=== PATIENT | female | born 1940 | race Hispanic/Latino ===

== ENCOUNTER 2017-12-07 14:14 | Emergency (ER) | payer OTHER ==
--- OUTSIDE RECORDS SUMMARY | 2017-12-07 14:18 | XMS REPORT ---
:1940 Author Organization [employer] Care Team Providers Name Role Phone Richard, Na Provider Role Unavailable Allergies, Adverse Reactions, Alerts Substance Reaction Event Type N.K.D.A. Info Not Available Non Drug Allergy Problems Problem Type Condition Code Onset Dates Condition Status Problem Hyperlipidemia, unspecified E78.5 Active hyperlipidemia type Problem Pleural effusion in other conditions J91.8 Active classified elsewhere Problem Gastroesophageal reflux disease K21.9 Active without esophagitis Problem Mass of right lung R91.8 Active Assessment Abnormal PET scan of colon R94.8 Active Problem Abnormal PET scan of colon R94.8 Active Assessment Mass of right lung R91.8 Active Assessment Liver lesion, right lobe K76.9 Active Problem Elevated alkaline phosphatase level R74.8 Active Problem Mixed hyperlipidemia E78.2 Active Problem Solitary pulmonary nodule R91.1 Active Problem Liver lesion, right lobe K76.9 Active Problem Pleural effusion J90 Active Assessment Gastroesophageal reflux disease K21.9 Active without esophagitis Assessment Mixed hyperlipidemia E78.2 Active Assessment Pleural effusion in other conditions J91.8 Active classified elsewhere Assessment Seasonal allergic rhinitis due to J30.1 Active pollen Problem Obesity (BMI 30.0-34.9) E66.9 Active Problem Vitamin D deficiency E55.9 Active Assessment Hypertension, unspecified type I10 Active Problem Hypertension, unspecified type I10 Active Assessment Elevated alkaline phosphatase level R74.8 Active Problem Seasonal allergic rhinitis due to J30.1 Active pollen Medications Medication Code Code Instructions Start End Status Dosage System Date Date Omeprazole ND 56797697087 20MG orally once Active one daily tablet Zyrtec Allergy ND 43924913856 10 MG Orally Active 1 tablet Once a day Atorvastatin ND 24297535526 20 MG Orally Active 1 tablet Calcium Once a day Lisinopril ND 17796782809 20 MG Orally Active 1 tablet Once a day Vitamin D3 ND 35861524007 50,000 PO once a Active one tab week Results No Known Results Summary Purpose [employer] Submission
--- OUTSIDE RECORDS SUMMARY | 2017-12-07 14:18 | XMS REPORT | Clinical Summary ---
:1940 Author Organization [facility] Address [address] [place] [address] Care Team Providers Name Role Phone Billie Richard DO Primary Care Provider Allergies No Known Allergies Current Medications Prescription Sig. Disp. Refills Start Date End Date Status atorvastatin Take 20 mg by Active (LIPITOR) 20 MG mouth daily. tablet Default OP ins lisinopril Take 20 mg by Active (PRINIVIL,ZESTRIL) 20 mouth daily. mg tablet omeprazole (PriLOSEC) Take 20 mg by Active 20 MG capsule mouth daily. aspirin (ECOTRIN) 81 Take 81 mg by Active MG enteric coated mouth daily. tablet cholecalciferol, Take by mouth. Active vitamin D3, (VITAMIN D3) 5,000 unit tablet acetaminophen Take 2 tablets 30 tablet 0 09/23/2017 09/28/2017 (TYLENOL) 500 MG (1,000 mg tablet total) by mouth every 8 (eight) hours for 5 days. gabapentin Take 1 capsule 90 capsule 0 09/23/2017 10/23/2017 (NEURONTIN) 300 mg (300 mg total) capsule by mouth 3 (three) times a day for 30 days. ibuprofen Take 1 tablet 12 tablet 0 09/23/2017 09/26/2017 (ADVIL,MOTRIN) 400 MG (400 mg total) tablet by mouth every 6 (six) hours for 3 days. Active Problems Problem Noted Date Lung nodule 09/22/2017 Encounters Date Type Specialty Care Team Description 11/24/2017 Telephone Cardiothoracic Surgery Kim Swain MA 10/27/2017 Telephone Cardiothoracic Surgery Kim Swain MA 10/19/2017 Telephone Cardiothoracic Surgery Ellen Phan MA 10/18/2017 Orders Only Cardiothoracic Surgery Ellen Phan, LEONARDO 09/30/2017 Telephone Cardiothoracic Surgery Milan Fuentes MD 09/22/2017 - Hospital Encounter Cardiology Milan Fuentes Lung nodule ( Primary Dx); 09/23/2017 MD Deyanira Lung mass 09/22/2017 Anesthesia Event Cardiothoracic Surgery Carlos Hicsk, LENIN 09/22/2017 Procedure Pass Cardiothoracic Surgery 09/22/2017 Surgery Cardiothoracic Surgery Milan Fuentes RIGHT VATS, PARTIAL MD Deyanira DECORTICATION, AND RIGHT PLEURAL BX 09/20/2017 Telephone Cardiothoracic Surgery Ellen Phan MA 09/03/2017 Hospital Encounter Procedural Cardiology Octavio Guerra MD Abnormal EKG 09/03/2017 Hospital Encounter Procedural Cardiology Octavio Guerra MD Abnormal EKG 09/03/2017 Ancillary Orders Access Octavio Guerra MD Abnormal EKG 08/31/2017 Transcribe Orders Access Octavio Guerra MD Abnormal EKG (Primary Dx) 08/26/2017 Hospital Encounter Radiology Milan Fuentes Canceled (Sotero Mcmillan MD Order Error) 08/26/2017 Hospital Encounter Radiology Milan Fuentes MD 08/26/2017 Office Visit Cardiothoracic Surgery Milan Fuentes Lung mass ( Primary Dx); MD Deyanira Pre-op testing 08/26/2017 Ancillary Orders Radiology Milan Fuentes MD 08/23/2017 Orders Only Cardiothoracic Surgery Yuni Villa MD 08/18/2017 Orders Only Cardiothoracic Surgery Yuni Villa MD 08/18/2017 Telephone Cardiothoracic Surgery Ellen Phan MA 07/21/2017 Telephone Cardiothoracic Surgery Ellen Phan MA 07/15/2017 Hospital Encounter Radiology Milan Fuentes MD 07/15/2017 Hospital Encounter Radiology Milan Fuentes MD 07/15/2017 Office Visit Cardiothoracic Surgery Milan Fuentes Pleural effusion MD Deyanira (Primary Dx) 07/15/2017 Ancillary Orders Radiology Milan Fuentes MD 07/15/2017 Orders Only Cardiothoracic Surgery Yuni Villa MD 07/12/2017 Orders Only Cardiothoracic Surgery Yuni Villa MD after 12/06/2016 Family History Medical History Relation Name Comments No Known Problems Father No Known Problems Mother Breast cancer Paternal Aunt Relation Name Status Comments Father Mother Paternal Aunt Social History Tobacco Use Types Packs/Day Years Used Date Former Smoker Cigarettes 1 20 Quit: 2007 Smokeless Tobacco: Never Used Alcohol Use Drinks/Week oz/Week Comments No Sex Assigned at Date Recorded Not on file Last Filed Vital Signs Vital Sign Reading Time Taken Blood Pressure 111/52 09/23/2017 11:32 AM CDT Pulse 76 09/23/2017 11:32 AM CDT Temperature 36.7 C (98.1 F) 09/23/2017 11:32 AM CDT Respiratory Rate 20 09/23/2017 11:32 AM CDT Oxygen Saturation 91% 09/23/2017 11:32 AM CDT Inhaled Oxygen Concentration - - Weight 79.8 kg (176 lb) 09/23/2017 6:08 AM CDT Height 154.9 cm (5' 1") 09/22/2017 5:36 PM CDT Body Mass Index 33.25 09/23/2017 6:08 AM CDT Plan of Treatment Health Maintenance Due Date Last Done Comments SHINGRIX VACCINE (#1) 1991 ZOSTER VACCINE 2001 PNEUMOCOCCAL POLYSACCHARIDE VACCINE AGE 65 AND OVER 2006 PNEUMOCOCCAL-13 2006 INFLUENZA VACCINE 09/29/2017 Procedures Procedure Name Priority Date/Time Associated Comments Diagnosis XR CHEST 1 VW STAT 09/23/2017 2:24 PM Results for this PORTABLE CDT procedure are in the results section. XR CHEST 1 VW Routine 09/23/2017 12:23 PM Results for this PORTABLE CDT procedure are in the results section. XR CHEST 1 VW Routine 09/23/2017 6:55 AM Results for this PORTABLE CDT procedure are in the results section. XR CHEST 1 VW STAT 09/22/2017 2:58 PM Results for this PORTABLE CDT procedure are in the results section. GLUCOSE LEVEL, STAT 09/22/2017 12:59 PM Results for this SYRINGE CDT procedure are in the results section. IONIZED CALCIUM, STAT 09/22/2017 12:59 PM Results for this ARTERIAL CDT procedure are in the results section. HEMOGLOBIN, SYRINGE STAT 09/22/2017 12:59 PM Results for this CDT procedure are in the results section. POTASSIUM, SYRINGE STAT 09/22/2017 12:59 PM Results for this CDT procedure are in the results section. SODIUM LEVEL, STAT 09/22/2017 12:59 PM Results for this SYRINGE CDT procedure are in the results section. ARTERIAL BLOOD GAS, STAT 09/22/2017 12:59 PM Results for this CORRECTED CDT procedure are in the results section. ANESTHESIA Routine 09/22/2017 12:39 PM INTUBATION CDT Procedure Note - Carlos Hicks, PURIFICATION SUPERVISOR - 09/22/2017 12:39 PM CDT Airway Date/Time: 09/22/2017 11:58 AM Performed by: CARLOS HICKS Authorized by: JUVENTINO ZUNIGA Location: OR Difficult Airway: No Anesthesiologist: JUVENTINO ZUNIGA Resident/PURIFICATION SUPERVISOR/AA: CARLOS HICKS Performed by: resident/PURIFICATION SUPERVISOR/AA Preoxygenated with 100% O2: Yes Mask Ventilation: Not attempted Final Airway Type: Endotracheal airway Final Endotracheal Airway: ETT - double lumen left Cuffed: Yes Technique Used: Direct laryngoscopy Blade Type: Alcira Laryngoscope Blade/Videolaryngoscope Blade Size: 3 ETT Double Lumen (fr): 37 Cuff at minimum occlusion pressure: Yes Measured from: Lips ETT to Lips (cm): 26 Placement Verified by: CO2 detection, direct visualization, equal breath sounds and fiber optic visualization Laryngoscopic view: Grade I - full view of glottis Number of Attempts at Approach: 1 Atraumatic tube exchange without damage to lips or gums. Dentition remains intact as per preoperative assessment. BLBS and EtCO2 confirmed. Fiberoptic bronchoscope used to confirm appropriate placement. Both cuffs at minimal occlusive pressure. GLUCOSE LEVEL, SYRINGE STAT 09/22/2017 12:26 PM CDT POTASSIUM, SYRINGE STAT 09/22/2017 12:26 PM CDT IONIZED CALCIUM, ARTERIAL STAT 09/22/2017 12:26 PM CDT HEMOGLOBIN, SYRINGE STAT 09/22/2017 12:26 PM CDT SODIUM LEVEL, SYRINGE STAT 09/22/2017 12:26 PM CDT ARTERIAL BLOOD GAS STAT 09/22/2017 12:26 PM CDT CYTOLOGY Routine 09/22/2017 12:25 PM CDT Results for this procedure (NON-GYNECOLOGICAL) are in the results REQUEST section. ARTERIAL LINE Routine 09/22/2017 11:42 AM CDT Procedure Note - Carlos Hicks CRNA - 09/22/2017 11:42 AM CDT Arterial line Performed by: CARLOS HICKS Authorized by: JUVENTINO ZUNIGA Patient Location: Pre-op Staff: Anesthesiologist: JUVENTINO ZUNIGA Resident/PURIFICATION SUPERVISOR/AA: CARLOS HICKS Performed by: Resident/PURIFICATION SUPERVISOR/AA Pre-procedure: patient identified, IV checked, site and side verified, risks and benefits discussed, procedure verified, surgical consent complete, patient position confirmed, monitors and equipment checked and pre-op evaluation complete MSBT: antiseptic used, all elements of maximal sterile barrier technique followed, hand hygiene performed, cap/gown used by other personnel and solutions labeled Indications: Indications: multiple ABGs and hemodynamic monitoring Anesthesia: Anesthesia: Local infiltration Procedure Details: Arterial Line placement: Placed pre-induction Line placement site: Radial Line placement side: Left Arterial line gauge: 20 G Number of attempts: 1 Ultrasound guidance used: No Post-procedure: Post-procedure: Sterile dressing applied Post procedure circulation, sensation, movement: Normal and unchanged Patient tolerance: Patient tolerated the procedure well with no immediate complications MN AN ELECTIVE ENDOTRACHEAL AIRWAY Routine 09/22/2017 11:41 AM CDT Procedure Note - Carlos Hicks CRNA - 09/22/2017 11:41 AM CDT Airway Date/Time: 09/22/2017 11:27 AM Performed by: CARLOS HICKS Authorized by: JUVENTINO ZUNIGA Location: OR Urgency: Elective Difficult Airway: No Anesthesiologist: JUVENTINO ZUNIGA Resident/PURIFICATION SUPERVISOR/AA: CARLOS HICKS Performed by: resident/PURIFICATION SUPERVISOR/AA Preoxygenated with 100% O2: Yes Mask Ventilation: Easy mask Final Airway Type: Endotracheal airway Final Endotracheal Airway: ETT Cuffed: Yes Technique Used: Direct laryngoscopy Devices/Methods Used in Placement: Intubating stylet Insertion Site: Oral Blade Type: Cowart Laryngoscope Blade/Videolaryngoscope Blade Size: 2 ETT Size (mm): 8.5 Cuff at minimum occlusion pressure: Yes Measured from: Lips ETT to Lips (cm): 21 Placement Verified by: CO2 detection, direct visualization and equal breath sounds Laryngoscopic view: Grade I - full view of glottis Rapid Sequence Induction (RSI): No Number of Attempts at Approach: 1 Atraumatic intubation without damage to lips or gums. Dentition remains intact as per preoperative assessment. BLBS and EtCO2 confirmed. Cuff inflated to minimal occlusive pressure. Eyes taped prior to DL. GLUCOSE LEVEL, SYRINGE STAT 09/22/2017 10:40 AM Results for this CDT procedure are in the results section. HEMOGLOBIN, SYRINGE STAT 09/22/2017 10:40 AM Results for this CDT procedure are in the results section. IONIZED CALCIUM, ARTERIAL STAT 09/22/2017 10:40 AM Results for this CDT procedure are in the results section. SODIUM LEVEL, SYRINGE STAT 09/22/2017 10:40 AM Results for this CDT procedure are in the results section. POTASSIUM, SYRINGE STAT 09/22/2017 10:40 AM Results for this CDT procedure are in the results section. ARTERIAL BLOOD GAS STAT 09/22/2017 10:40 AM Results for this CDT procedure are in the results section. PREPARE RBC STAT 09/22/2017 9:11 AM Results for this CDT procedure are in the results section. ZZESTIMATED GFR STAT 09/22/2017 9:11 AM Results for this CDT procedure are in the results section. TYPE AND SCREEN STAT 09/22/2017 9:11 AM Results for this CDT procedure are in the results section. PARTIAL THROMBOPLASTIN STAT 09/22/2017 9:11 AM Results for this TIME (PTT) CDT procedure are in the results section. PROTHROMBIN TIME WITH INR STAT 09/22/2017 9:11 AM Results for this CDT procedure are in the results section. BASIC METABOLIC PANEL STAT 09/22/2017 9:11 AM Results for this CDT procedure are in the results section. HC COMPLETE BLD COUNT STAT 09/22/2017 9:11 AM Results for this W/AUTO DIFF CDT procedure are in the results section. CYTOLOGY Routine 09/22/2017 9:10 AM Results for this (NON-GYNECOLOGICAL) CDT procedure are in REQUEST the results section. SURGICAL PATHOLOGY Routine 09/22/2017 8:54 AM Results for this REQUEST CDT procedure are in the results section. SURGICAL PATHOLOGY Routine 09/22/2017 8:54 AM Results for this REQUEST CDT procedure are in the results section. SURGICAL PATHOLOGY Routine 09/22/2017 8:54 AM Results for this REQUEST CDT procedure are in the results section. NM MYOCARDIAL PERFUSION Routine 09/03/2017 11:05 AM Abnormal EKG Results for this STRESS ONLY CDT procedure are in the results section. CV STRESS TEST NUCLEAR Routine 09/03/2017 11:05 AM Abnormal EKG Results for this CARDIO CDT procedure are in the results section. ECHOCARDIOGRAM 2D Routine 09/03/2017 9:35 AM Abnormal EKG Results for this COMPLETE W MMODE SPECTRAL CDT procedure are in COLOR DOPPLER (40199) the results section. CT CHEST W CONTRAST Routine 08/17/2017 12:[address] CHEST EXTERNAL STUDY Routine 08/12/2017 9:27 AM Results for this CDT procedure are in the results section. PET CT SKULL BASE MID Routine 08/12/2017 12:00 AM THIGH EXTERNAL STUDY CDT XR CHEST EXTERNAL STUDY Routine 07/02/2017 11:31 AM Results for this CDT procedure are in the results section. XR CHEST 2 VW Routine 07/02/2017 12:[address] CHEST EXTERNAL STUDY Routine 02/11/2017 9:14 AM Results for this PROPERTY UNDERWRITER procedure are in the results section. CT CHEST WO CONTRAST Routine 02/11/2017 12:00 AM PROPERTY UNDERWRITER after 12/06/2016 Results XR Chest 1 Vw Portable (09/23/2017 2:24 PM)Only the most recent of4 resultswithin the time period is included. Narrative Performed At EXAMINATION:XR CHEST 1 VW PORTABLE RADIANT CLINICAL HISTORY:chest tube removed COMPARISON:To previous study from 1025 hours IMPRESSION: Right pleural tube is been removed and a loculated small right pneumothorax is unchanged. Consolidation and atelectasis in the right lower chest are present. The left lung is clear. The heart is not enlarged. [id number] Procedure Note Hm Interface, Radiology Results Incoming - 09/23/2017 2:28 PM CDT EXAMINATION: XR CHEST 1 VW PORTABLE CLINICAL HISTORY: chest tube removed COMPARISON: To previous study from 1025 hours IMPRESSION: Right pleural tube is been removed and a loculated small right pneumothorax is unchanged. Consolidation and atelectasis in the right lower chest are present. The left lung is clear. The heart is not enlarged. [id number] Performing Organization Address City/State/[place] [address] Sodium level, syringe (09/22/2017 12:59 PM)Only the most recent of3 resultswithin the time period is included. Sodium, syringe 138 135 - 148 mEq/L [facility] DEPARTMENT OF PATHOLOGY AND GENOMIC MEDICINE Specimen Blood Performing Organization Address [facility] Phone Number [facility] DEPARTMENT OF PATHOLOGY AND [address] [place] [address] Potassium, syringe (09/22/2017 12:59 PM)Only the most recent of3 resultswithin the time period is included. Potassium, syringe 3.7 3.5 - 5.0 mEq/L [facility] DEPARTMENT OF PATHOLOGY AND GENOMIC MEDICINE Specimen Blood Performing Organization Address [facility] Phone Number [facility] DEPARTMENT OF PATHOLOGY AND [address] [place] [address] Ionized calcium, arterial (09/22/2017 12:59 PM)Only the most recent of3 resultswithin the time period is included. Ionized calcium, arterial 1.14 1.11 - 1.32 mmol/L [facility] DEPARTMENT OF PATHOLOGY AND GENOMIC MEDICINE Specimen Blood Performing Organization Address [facility] Phone Number [facility] DEPARTMENT PATHOLOGY AND [address] [place] [address] Hemoglobin, syringe (09/22/2017 12:59 PM)Only the most recent of3 resultswithin the time period is included. Hemoglobin, syringe 9.6 (L) 12.0 - 16.0 g/dL [facility] DEPARTMENT OF PATHOLOGY AND GENOMIC MEDICINE Specimen Blood Performing Organization Address [facility] Phone Number [facility] DEPARTMENT OF PATHOLOGY AND [address] [place] [address] Glucose level, syringe (09/22/2017 12:59 PM)Only the most recent of3 resultswithin the time period is included. Glucose, syringe 101 (H) 65 - 99 mg/dL [facility] DEPARTMENT OF PATHOLOGY AND GENOMIC MEDICINE Specimen Blood Performing Organization Address [facility] Phone Number [facility] DEPARTMENT PATHOLOGY AND [address] [place] [address] Arterial blood gas, corrected (09/22/2017 12:59 PM) pH, arterial 7.48 (H) 7.35 - 7.45 [facility] DEPARTMENT OF PATHOLOGY AND GENOMIC MEDICINE pCO2, arterial 34 (L) 35 - 45 mmHg [facility] DEPARTMENT OF PATHOLOGY AND GENOMIC MEDICINE pO2, arterial 432 (H) 80 - 90 mmHg [facility] DEPARTMENT OF PATHOLOGY AND GENOMIC MEDICINE Temperature, Celsius 36.3 Degrees C [facility] DEPARTMENT OF PATHOLOGY AND GENOMIC MEDICINE O2 saturation, arterial 100 95 - 100 % [facility] DEPARTMENT OF PATHOLOGY AND GENOMIC MEDICINE pH, arterial corrected 7.50 [facility] DEPARTMENT OF PATHOLOGY AND GENOMIC MEDICINE pCO2, arterial corrected 33 mmHg [facility] DEPARTMENT OF PATHOLOGY AND GENOMIC MEDICINE pO2, arterial corrected 429 mmHg [facility] DEPARTMENT OF PATHOLOGY AND GENOMIC MEDICINE Base excess, arterial 3 (H) -2 - 2 mEq/L [facility] DEPARTMENT OF PATHOLOGY AND GENOMIC MEDICINE Specimen Blood Performing Organization Address City/[facility] Phone Number [facility] DEPARTMENT OF PATHOLOGY AND [address] [place] [phone] [facility] MEDICINE Arterial blood gas (09/22/2017 12:26 PM)Only the most recent of2 resultswithin the time period is included. pH, arterial 7.47 (H) 7.35 - 7.45 [facility] DEPARTMENT OF PATHOLOGY AND GENOMIC MEDICINE pCO2, arterial 37 35 - 45 mmHg [facility] DEPARTMENT OF PATHOLOGY AND GENOMIC MEDICINE pO2, arterial 473 (H) 80 - 90 mmHg [facility] DEPARTMENT OF PATHOLOGY AND GENOMIC MEDICINE Bicarbonate, arterial 26.7 21.0 - 28.0 mmol/L [facility] DEPARTMENT OF PATHOLOGY AND GENOMIC MEDICINE Base excess, arterial 3 (H) -2 - 2 mEq/L [facility] DEPARTMENT OF PATHOLOGY AND GENOMIC MEDICINE O2 saturation, arterial 100 95 - 100 % [facility] DEPARTMENT OF PATHOLOGY AND GENOMIC MEDICINE Specimen Blood Performing Organization Address City/[facility] Phone Number [facility] DEPARTMENT OF PATHOLOGY AND [address] [place] [phone] GENOMIC MEDICINE Cytology (non-gynecological) request (09/22/2017 12:25 PM)Only the most recent of2 resultswithin the time period is included. [facility] DEPARTMENT OF PATHOLOGY AND GENOMIC MEDICINE Cytology See link below for PDF [facility] DEPARTMENT OF (non-gynecological) report Lab Report PATHOLOGY AND GENOMIC MEDICINE Result status This is Final Report to [facility] DEPARTMENT OF [id number] PATHOLOGY AND GENOMIC MEDICINE Performing Organization Address City/[facility] Phone Number [facility] DEPARTMENT OF PATHOLOGY AND [address] [place] [phone] [place] [address] Estimated GFR (09/22/2017 9:11 AM) GFR Non Af Amer 81 mL/min/1.73 m2 [facility] DEPARTMENT OF PATHOLOGY AND GENOMIC MEDICINE GFR Af Amer >90 mL/min/1.73 m2 [facility] DEPARTMENT OF Comment: PATHOLOGY AND GENOMIC Chronic kidney disease: <60 mL/min/1.73m2 MEDICINE Kidney failure: <15 mL/min/1.73m2 The estimated GFR is calculated from the IDMS-traceable Modification of Diet in Renal Disease Equation. The accuracy of the calculation is poor when the creatinine is normal. Calculated values >90 mL/min/1.73m2 are not reported. This equation has not been validated in children (<18 years), women, the elderly (>70 years), or ethnic groups other than Caucasians and Americans. Specimen Plasma specimen Performing Organization Address City/[facility] Phone Number [facility] DEPARTMENT OF PATHOLOGY AND [address] [place] [phone] [facility] Partial thromboplastin time, activated (09/22/2017 9:11 AM) PTT 40.8 (H) 23.0 - 36.0 sec [facility] DEPARTMENT OF PATHOLOGY Comment: AND [facility] PTT therapeutic range for unfractionated heparin is 61.0-112.0 seconds which corresponds to Anti-Xa 0.3-0.7 U/ml. Specimen Blood Performing Organization Address City/[facility] Phone Number [facility] DEPARTMENT OF PATHOLOGY AND [address] [place] [phone] [facility] Prothrombin time with INR (09/22/2017 9:11 AM) Prothrombin time 15.6 (H) 12.0 - 15.0 sec [facility] DEPARTMENT OF PATHOLOGY AND GENOMIC MEDICINE INR 1.2 [facility] DEPARTMENT OF Comment: PATHOLOGY AND GENOMIC The International Normalized Ratio (INR) is a therapeutic MEDICINE monitoring tool for patients who are stable on oral anticoagulant therapy. An INR of 2.0-3.0 is suggested for deep vein thrombosis/pulmonary embolism. Specimen Blood Performing Organization Address City/[facility] Phone Number [facility] DEPARTMENT OF PATHOLOGY AND [address] [place] [phone] [facility] CBC with platelet and differential (09/22/2017 9:11 AM) WBC 8.85 4.50 - 11.00 k/uL [facility] DEPARTMENT OF PATHOLOGY AND GENOMIC MEDICINE RBC 4.11 (L) 4.20 - 5.50 m/uL [facility] DEPARTMENT OF PATHOLOGY AND GENOMIC MEDICINE HGB 10.7 (L) 12.0 - 16.0 g/dL [facility] DEPARTMENT OF PATHOLOGY AND GENOMIC MEDICINE HCT 34.4 (L) 37.0 - 47.0 % [facility] DEPARTMENT OF PATHOLOGY AND GENOMIC MEDICINE MCV 83.7 82.0 - 100.0 fL [facility] DEPARTMENT OF PATHOLOGY AND GENOMIC MEDICINE MCH 26.0 (L) 27.0 - 34.0 pg [facility] DEPARTMENT OF PATHOLOGY AND GENOMIC MEDICINE MCHC 31.1 31.0 - 37.0 g/dL [facility] DEPARTMENT OF PATHOLOGY AND GENOMIC MEDICINE RDW - SD 39.6 37.0 - 55.0 fL [facility] DEPARTMENT OF PATHOLOGY AND GENOMIC MEDICINE MPV 10.0 8.8 - 13.2 fL [facility] DEPARTMENT OF PATHOLOGY AND GENOMIC MEDICINE Platelet count 346 150 - 400 k/uL [facility] DEPARTMENT OF PATHOLOGY AND GENOMIC MEDICINE Nucleated RBC 0.00 /100 WBC [facility] DEPARTMENT OF PATHOLOGY AND GENOMIC MEDICINE Neutrophils 73.1 (H) 39.0 - 69.0 % [facility] DEPARTMENT OF PATHOLOGY AND GENOMIC MEDICINE Lymphocytes 19.3 (L) 25.0 - 45.0 % [facility] DEPARTMENT OF PATHOLOGY AND GENOMIC MEDICINE Monocytes 6.3 0.0 - 10.0 % [facility] DEPARTMENT OF PATHOLOGY AND GENOMIC MEDICINE Eosinophils 0.5 0.0 - 5.0 % [facility] DEPARTMENT OF PATHOLOGY AND GENOMIC MEDICINE Basophils 0.5 0.0 - 1.0 % [facility] DEPARTMENT OF PATHOLOGY AND GENOMIC MEDICINE Immature granulocytes 0.3Comment: 0.0 - 1.0 % [facility] DEPARTMENT OF "Immature PATHOLOGY AND GENOMIC granulocytes" MEDICINE (promyelocytes, myelocytes, metamyelocytes) Specimen Blood Performing Organization Address City/State/Zipcode Phone Number [facility] DEPARTMENT OF PATHOLOGY AND [address] [place] [phone] [employer] Prepare RBC (09/22/2017 9:11 AM) Product name Red Blood Cells -1, [facility] DEPARTMENT OF Leukored PATHOLOGY AND GENOMIC MEDICINE Unit number [id number] [facility] DEPARTMENT OF PATHOLOGY AND GENOMIC MEDICINE Product code [id number] [facility] DEPARTMENT OF PATHOLOGY AND GENOMIC MEDICINE Dispense status Returned to not [facility] DEPARTMENT OF transfused PATHOLOGY AND GENOMIC MEDICINE Blood expiration date [facility] DEPARTMENT OF PATHOLOGY AND GENOMIC MEDICINE Blood type code 0600 [facility] [facility] DEPARTMENT OF PATHOLOGY AND GENOMIC MEDICINE Blood type A NEGATIVE [facility] DEPARTMENT OF PATHOLOGY AND GENOMIC MEDICINE Product name Apheresis -1 LR #1 [facility] DEPARTMENT OF PATHOLOGY AND GENOMIC MEDICINE Unit number [id number] [facility] DEPARTMENT OF PATHOLOGY AND GENOMIC MEDICINE Product code [id number] [facility] DEPARTMENT OF PATHOLOGY AND GENOMIC MEDICINE Dispense status Returned to not [facility] DEPARTMENT OF transfused PATHOLOGY AND GENOMIC MEDICINE Blood expiration date [facility] DEPARTMENT OF PATHOLOGY AND GENOMIC MEDICINE Blood type code 0600 [facility] DEPARTMENT OF PATHOLOGY AND GENOMIC MEDICINE Blood type A NEGATIVE [facility] DEPARTMENT OF PATHOLOGY AND GENOMIC MEDICINE Performing Organization Address City/[facility] Phone Number [facility] DEPARTMENT OF PATHOLOGY AND [address] [place] [address] GENOMIC MEDICINE Type and screen (09/22/2017 9:11 AM) ABO grouping A [facility] DEPARTMENT OF PATHOLOGY AND GENOMIC MEDICINE Rh type NEG [facility] DEPARTMENT OF PATHOLOGY AND GENOMIC MEDICINE Antibody screen (gel) NEG [facility] DEPARTMENT OF PATHOLOGY AND GENOMIC MEDICINE Specimen Blood Performing Organization Address City/[facility] Phone Number [facility] DEPARTMENT OF PATHOLOGY AND [address] [place] [phone] GENOMIC MEDICINE Basic metabolic panel (09/22/2017 9:11 AM) Sodium 140 135 - 148 mEq/L [facility] DEPARTMENT OF PATHOLOGY AND GENOMIC MEDICINE Potassium 4.3 3.5 - 5.0 mEq/L [facility] DEPARTMENT OF PATHOLOGY AND GENOMIC MEDICINE Chloride 99 98 - 112 mEq/L [facility] DEPARTMENT OF PATHOLOGY AND GENOMIC MEDICINE CO2 30 24 - 31 mEq/L [facility] DEPARTMENT OF PATHOLOGY AND GENOMIC MEDICINE Anion gap 11@ANIO 7 - 15 mEq/L [facility] DEPARTMENT OF PATHOLOGY AND GENOMIC MEDICINE BUN 15 8 - 23 mg/dL [facility] DEPARTMENT OF PATHOLOGY AND GENOMIC MEDICINE Creatinine 0.7 0.5 - 0.9 mg/dL [facility] DEPARTMENT OF PATHOLOGY AND GENOMIC MEDICINE Glucose 108 (H) 65 - 99 mg/dL [facility] DEPARTMENT OF PATHOLOGY AND GENOMIC MEDICINE Calcium 10.3 (H) 8.8 - 10.2 mg/dL [facility] DEPARTMENT OF PATHOLOGY AND GENOMIC MEDICINE Specimen Plasma specimen Performing Organization Address City/[facility] Phone Number [facility] DEPARTMENT OF PATHOLOGY AND [address] [place] [phone] GENOMIC MEDICINE Surgical pathology request (09/22/2017 8:54 AM)Only the most recent of3 resultswithin the time period is included. [facility] DEPARTMENT OF PATHOLOGY AND GENOMIC MEDICINE Surgical pathology See link below for PDF Lab [facility] DEPARTMENT OF report Report PATHOLOGY AND GENOMIC MEDICINE Result status This is Supplemental Report [facility] DEPARTMENT OF to [id number] PATHOLOGY AND GENOMIC MEDICINE Performing Organization Address City/[facility] Phone Number [facility] DEPARTMENT OF PATHOLOGY AND [address] [place] [address] MEDICINE Cv exercise treadmill stress (no imaging) (09/03/2017 11:05 AM) Resting HR 85 [facility] MUSE Resting BP 173 [facility] Peak MET Achieved 1.0 [facility] Protocol Name REGADENO [facility] Time in Exercise Phase 00:01:00 [facility] Max Systolic BP 180 [facility] Max Diastolic BP 80 [facility] Max Heart Rate 113 [facility] Max Predicted Heart Rate 144 [facility] M[facility] Target HR Formula (220 - Age)*100% [facility] M[facility] Test Indication PRE-OP CLEARENCE [facility] MUSE Arrhy During Ex [facility] MUSE ECG Interp Before EX [facility] M[facility] ECG Interp During Ex [facility] Ex Summary Comment [facility] M[facility] Overall HR Response to [facility] Exercise Overall BP Response To [facility] M[facility] Exercise Reason for Termination [facility] M[facility] Stress Test Impression -Waveform interpreted in report [facility] MUSE associated with image study. No interpretation is provided as part of this Stress ECG report.-Electronically Signed By Rashad GRACE, Reyna Garcia ([id number]), editor department Delmi Santizo ([id number]) on 09/03/2017 11:57:16 AM Performing Organization Address City/[facility] Phone Number [facility] MUSE [address] [phone] Cv myocardial perfusion (09/03/2017 11:05 AM) Narrative Performed At [facility] Nuclear Cardiology and Cardiac CT [address] [place] [address] Myocardial Perfusion Imaging Report Stress ECG tracings are available in MUSE, EPIC and CV Web All ECG interpretations are included in this report Pat.Name:NYASIA ESTHER Pat.ID:[id number] St.Date: 09/03/2017Refer.MD:OCTAVIO GUERRA MD Exam Time: 10:13:00 AM Study Type:Myocardial Perfusion Imaging Height:61inWeight: 180lb BSA: 1.81 m2 DOBAge:1940,77Y Sex: FEMALEBP:173/77 HR:83 bpm Nuclear Tech:Landon Granado, [facility], ARRT/Molly Lopez, [facility], ARRT/Aysha Hamlin, [facility] Pat. Stat.:Outpatient Nuclear Event ID:[id number] Order ID:[id number] Reason for Study:Pre-op evaluation, intermediate/high risk patient History / Clinical:Hyperlipidemia, Hypertension, Obesity Procedures:Stress only Race:C Risk Factors:Hyperlipidemia, Hypertension, Obesity, pre-op Clinical Symptoms:Regadenoson Physical Exam:S1, S2 Surgery: Outpatient Medications:Aspirin, Lisinopril SUMMARY: SCINTIGRAPHIC RESULTS Perfusion Defect Size (% LV) 0 % Total 0 % Ischemia 0 % Scar Left Ventricular Perfusion Results There is normal tracer distribution throughout the myocardium during stress. Gated SPECT Results The post-stress left ventricular ejection fraction is 94 % with normal regional wall motion and left ventricular thickening.Left ventricular end-diastolic volume is 48 ml; end-systolic volume is3 ml. The left ventricle is of normal size at stress.The right ventricle is of normal size with normal wall motion. Conclusion Normal regadenoson Tc-99m tetrofosmin myocardial perfusion study. The left ventricular ejection fraction is normal. Comments Patients with a normal stress myocardial perfusion study have a low (< 1%) annual risk of cardiac or nonfatal myocardial infarction. Study Quality/Artifacts The study quality is good. Comparison to Previous Study None available. STRESS: Baseline Vital Signs:Intervention: Regadenoson 0.4mg/5ml IV over 10 seconds followed by radiotracer injection and 5ml saline flush ECG: Normal Sinus Rhythm, Left atrial enlargement HR:83 BP:173/77 Stress Test Results: Target HR: 122 Symptoms and Complications: Arrhythmias: None Terminated: As per Regadenoson protocol Symptoms:Fatigue Complications: None Conclusions: Normal heart rate response to pharmacological stress, Normal blood pressure response to pharmacological stress Stress ECG Interp: No ischemic ST segment change occurred with stress. Signed 09/03/2017 04:46 PM Reyna Solorzano MD Procedure Note Interface, Radiology Results In - 09/03/2017 4:46 PM CDT Nuclear Cardiology and Cardiac CT [address] [place] [address] Myocardial Perfusion Imaging Report Stress ECG tracings are available in [employer], [employer] and [employer] All ECG interpretations are included in this report Pat.Name: ESTHER MURRELL Pat.ID: [id number] St.Date: 09/03/2017 Refer.MD: OCTAVIO GUERRA MD Exam Time: 10:13:00 AM Study Type:Myocardial Perfusion Imaging Height: 61in Weight: 180lb BSA: 1.81 m2 Age: 13 1940,77Y Sex: FEMALE BP: 173/77 HR: 83 bpm Nuclear Tech:DOMINGA DoMT, FANNY/LUIS MANUEL Chapman, ARRSelina/LUIS MANUEL Marie Pat. Stat.:Outpatient Nuclear Event ID:[id number] Order ID: [id number] Reason for Study:Pre-op evaluation, intermediate/high risk patient History / Clinical:Hyperlipidemia, Hypertension, Obesity Procedures:Stress only Race: C Risk Factors:Hyperlipidemia, Hypertension, Obesity, pre-op Clinical Symptoms:Regadenoson Physical Exam:S1, S2 Surgery: Outpatient Medications:Aspirin, Lisinopril SUMMARY: SCINTIGRAPHIC RESULTS Perfusion Defect Size (% LV) 0 % Total 0 % Ischemia 0 % Scar Left Ventricular Perfusion Results There is normal tracer distribution throughout the myocardium during stress. Gated SPECT Results The post-stress left ventricular ejection fraction is 94 % with normal regional wall motion and left ventricular thickening. Left ventricular end-diastolic volume is 48 ml; end-systolic volume is 3 ml. The left ventricle is of normal size at stress. The right ventricle is of normal size with normal wall motion. Conclusion Normal regadenoson Tc-99m tetrofosmin myocardial perfusion study. The left ventricular ejection fraction is normal. Comments Patients with a normal stress myocardial perfusion study have a low (< 1%) annual risk of cardiac or nonfatal myocardial infarction. Study Quality/Artifacts The study quality is good. Comparison to Previous Study None available. STRESS: Baseline Vital Signs: Intervention: Regadenoson 0.4mg/5ml IV over 10 seconds followed by radiotracer injection and 5ml saline flush ECG: Normal Sinus Rhythm, Left atrial enlargement HR: 83 BP: 173/77 Stress Test Results: Target HR: 122 Symptoms and Complications: Arrhythmias: None Terminated: As per Regadenoson protocol Symptoms: Fatigue Complications: None Conclusions: Normal heart rate response to pharmacological stress, Normal blood pressure response to pharmacological stress Stress ECG Interp: No ischemic ST segment change occurred with stress. Signed 09/03/2017 04:46 PM Reyna Solorzano MD Performing Organization Address [facility] Phone Number [facility] [address] [place] [address] Echocardiogram complete w contrast and 3D if needed (09/03/2017 9:35 AM) Narrative Performed At [facility] Echocardiography Report [address]Name:ESTHER MURRELL.ID:[id number] .Date: 09/03/2017Refer.MD:OCTAVIO GUERRA MD Exam Time: 8:40:00 AMStudy Type:Routine Echo Height:60inWeight: 184lb BSA: 1.8 n3SZCGip:1940,77Y Sex: FEMALEHR:90 bpm Sonogrphr: Octavio Thomas, [facility]. Stat.:Outpatient Study Status:Final Echo Event ID:[id number] Order ID:[id number] Reason for Study:Abnormal EKG [R94.31 (ICD-10-CM)] Procedures:2D Echo, Colorflow Doppler, Intravenous Definity Contrast Race:C SUMMARY: Normal biventricular chamber size and systolic function No hemodynamically significant valvular regurgitation or stenosis. A Focal lesion on the right coronary cusp of the the aortic valve is seen (measuring 7 x 10 mm). This might represent focal calcification or fibroelastoma. MIQUEL will provide better assessment FINDINGS: LV: LV size is normal. LV EF is normal. Overall wall motion is normal.Estimated EF is 65-69% RV: RV size is normal. RV systolic function is normal. LA: LA size is normal. RA: RA size is normal. AO: Aortic root diameter is normal. SETH: No pericardial effusion. AV: Trileafletaortic valve. Focal lesion on the RCC of the aorticvalve is seen (7 x 10 mm). This might represent focalcalcification or fibroelastoma. MV: No structural MV abnormalities noted. PV: Pulmonic valve not well seen. TV: No structural TV abnormalities noted. Jay: LV relaxation is normal. LV filling pressure is normal. Other:Unable to assess PA systolic pressure despite use of contrast. MEASUREMENTS: 2D Parasternal [place] LVOT 1.6 cmLA Ds3.4 cm LVIDd4.5 cmIndex2.5 cm/m Ao An2.1 cm LVIDs2.9 cmAo Rtd 2.8 cm Index1.6 cm/m LV%fs 35.6 % LV Miac543.5 g(87-129) IVSd 0.7 cmLVM Index 58.1 g/m2 LVPWd0.8 cmRWT0.4 LA [address] [place] LA Area 13.7 cm2(8.8-23.4) LA Vol31.7 ml Index17.6 ml/m LA LngAx 5 cm DOPPLER AV For Flow/EMRE AV pkVel 161.9 cm/s (100-170) AV AC/ET 0.2 AV mnVel 104.3 cm/Anthony TVI27.5 cm AV pkPG 10.5 mmHgAVpkAcRt 3680.9 cm/s2 AV Mean G5.1 mmHgAV EqOn449.5 cm/s2 AV AC 44 msec (83-118) AV Area1.9 cm2(3-5) AV ET264 msec LVOT For Flow LVOT Area2 cm2 LVOTmnPG 3.3 mmHg JNXFwhFin238.9 cm/sLVOT TVI25.4 cm LVOTpkPG 6.6 mmHgLVOT SV 51.1 ml Signed 09/04/2017 01:09 PM Maurice Landis MD Procedure Note Interface, Radiology Results In - 09/04/2017 1:10 PM CDT Echocardiography Report [address] [place] [address] Pat.Name: ESTHER MURRELL Pat.ID: [id number] St.Date: 09/03/2017 Refer.MD: OCTAVIO GUERRA MD Exam Time: 8:40:00 AM Study Type:Routine Echo Height: 60in Weight: 184lb BSA: 1.8 m2 Age: 13 1940,77Y Sex: FEMALE HR: 90 bpm Sonogrphr: JONO cMkeon Pat. Stat.:Outpatient Study Status:Final Echo Event ID:[id number] Order ID: [id number] Reason for Study:Abnormal EKG [R94.31 (ICD-10-CM)] Procedures:2D Echo, Colorflow Doppler, Intravenous Definity Contrast Race: C SUMMARY: Normal biventricular chamber size and systolic function No hemodynamically significant valvular regurgitation or stenosis. A Focal lesion on the right coronary cusp of the the aortic valve is seen (measuring 7 x 10 mm). This might represent focal calcification or fibroelastoma. MIQUEL will provide better assessment FINDINGS: LV: LV size is normal. LV EF is normal. Overall wall motion is normal. Estimated EF is 65-69% RV: RV size is normal. RV systolic function is normal. LA: LA size is normal. RA: RA size is normal. AO: Aortic root diameter is normal. SETH: No pericardial effusion. AV: Trileaflet aortic valve. Focal lesion on the RCC of the aortic valve is seen (7 x 10 mm). This might represent focal calcification or fibroelastoma. MV: No structural MV abnormalities noted. PV: Pulmonic valve not well seen. TV: No structural TV abnormalities noted. Jay: LV relaxation is normal. LV filling pressure is normal. Other: Unable to assess PA systolic pressure despite use of contrast. MEASUREMENTS: 2D Parasternal [place] LVOT 1.6 cm LA Ds 3.4 cm LVIDd 4.5 cm Index 2.5 cm/m Ao An 2.1 cm LVIDs 2.9 cm Ao Rtd 2.8 cm Index 1.6 cm/m LV%fs 35.6 % LV Mass 104.5 g (87-129) IVSd 0.7 cm LVM Index 58.1 g/m2 LVPWd 0.8 cm RWT 0.4 LA S[address]ane LA Area 13.7 cm2 (8.8-23.4) LA Vol 31.7 ml Index 17.6 ml/m LA LngAx 5 cm DOPPLER AV For Flow/EMRE AV pkVel 161.9 cm/s (100-170) AV AC/ET 0.2 AV mnVel 104.3 cm/s AV TVI 27.5 cm AV pkPG 10.5 mmHg AVpkAcRt 3680.9 cm/s2 AV Mean G 5.1 mmHg AV DeRt 613.5 cm/s2 AV AC 44 msec (83-118) AV Area 1.9 cm2 (3-5) AV ET 264 msec LVOT For Flow LVOT Area 2 cm2 LVOTmnPG 3.3 mmHg LVOTpkVel 128.9 cm/s LVOT TVI 25.4 cm LVOTpkPG 6.6 mmHg LVOT SV 51.1 ml Signed 09/04/2017 01:09 PM Maurice Landis MD Performing Organization Address City/[facility] Phone Number [facility] [address] [place] [address] CT Chest W Contrast (08/17/2017) Narrative Performed At CT Chest External Study (08/12/2017 9:27 AM)Only the most recent of2 resultswithin the time period is included. Narrative Performed At This exam was not acquired at a [facility] facility and has not been [facility] interpreted by a [facility] Provider.The exam was imported into our imaging system for comparisons purposes. Performing Organization Address City/[facility]/Zipcode Phone Number [facility] [address] [place] [address] PET/CT Skull Base Mid Thigh External Study (08/12/2017) Narrative Performed At XR Chest External Study (07/02/2017 11:31 AM) Narrative Performed At This exam was not acquired at a [facility] facility and has not been [facility] interpreted by a [facility] Provider.The exam was imported into our imaging system for comparisons purposes. Performing Organization Address City/State/Zipcode Phone Number [facility] [address] [place] [address] XR Chest 2 Vw (07/02/2017) Narrative Performed At CT Chest Wo Contrast (02/11/2017) Narrative Performed At after 12/06/2016 Insurance Payer Benefit Plan / Group Subscriber ID Type Phone Address [facility] MEDICARE [facility] CONNECT[facility] (MEDICARE-MEDICAID xxxxxxxxx HMO PLAN) [facility]LY [facility] CHOICE/CHOICE + xxxxxxxxx HMO/PPO
--- NOTE | 2017-12-07 15:26 | RAD REPORT ---
EXAM DESCRIPTION: CTSpine Lumbar Wo Con12/07/2017 3:09 pm CLINICAL HISTORY: Breast cancer with lumbar spine metastases TECHNIQUE: Computed axial tomography lumbar spine was obtained with coronal and sagittal reconstruct ion. All CT scans are performed using dose optimization technique as appropriate and may include automated exposure control or mA/KV adjustment according to patient size. FINDINGS: Small lytic and sclerotic areas are scattered throughout the lower thoracic/lumbar spine c ompatible with metastatic disease. A 35 millimeter destructive lesion is present within the right sacral ala near the SI joint. Smaller sclerotic and lucent lesions are present within sacrum and illia A pathologic fracture is not seen. An obvious mass within the spinal canal is not noted Disc bulge at L3-4 results in mild central spinal stenosis IMPRESSION: Metastatic disease involving the lower thoracic, lumbar, sacral spine and pelvic bones
[2017-12-07 16:16] LABS: Urine Appearance CLEAR; Urine Bilirubin NEGATIVE (NEG); Urine Blood NEGATIVE (NEG); Urine Color YELLOW; Urine Glucose NEGATIVE (NEG); Urine Microscopic Reflex NO UMIC; Urine Protein NEGATIVE (NEG)
[2017-12-07 16:23] LABS: Absolute Lymphocytes (CBC) 1.7 K/uL (0.7-4.9); Absolute Monocytes 0.4 K/uL (0.1-1.3); Absolute Neutrophil 4.4 K/uL (1.8-8.0); Basophils % 0.7 % (0-1.3); Hematocrit 34.9 % (36.0-45.0); Lymphocytes % 25.6 % (15.3-44.8); MCH 25.7 pg (27.0-35.0); MCV 79.7 fL (80-100); MPV 8.3 fL (7.6-11.3); Monocytes % 5.5 % (3.3-12.3); RBC Red Blood Cell Count 4.37 M/uL (3.86-4.86)
[2017-12-07 16:25] LABS: BUN Blood Urea Nitrogen 11 mg/dL (7-18); Bicarbonate 30 mmol/L (21-32); Glucose Level 81 mg/dL (74-106); Potassium 3.4 mmol/L (3.5-5.1); Sodium Level 140 mmol/L (136-145)
--- NOTE | 2017-12-07 16:49 | ER ---
Nurse's Notes [facility] Name: Ginny Raphael Age: 77 yrs Sex: Female : 1940 Arrival Date: 12/07/2017 Time: 14:17 Bed 15 Private MD: Billie Richard Diagnosis: Low back pain Presentation: 12/07 14:35 Presenting complaint: Patient states: THE CANCER DOCTOR SENT ME FOR SOME TESTS AND bp STUFF, THE CANCER SPREAD TO MY BONES. Transition of care: patient was not received from another setting of care. Onset of symptoms is unknown. Risk Assessment: Do you want to hurt yourself or someone else? Patient reports no desire to harm self or others. Initial Sepsis Screen: Does the patient meet any 2 criteria? No. Patient's initial sepsis screen is negative. Does the patient have a suspected source of infection? No. Patient's initial sepsis screen is negative. Care prior to arrival: None. 14:35 Method Of Arrival: Wheelchair bp 14:35 Acuity: VANITA 3 bp Triage Assessment: 14:38 General: Appears in no apparent distress. comfortable, Behavior is calm, cooperative, bp appropriate for age. Pain: Denies pain. GI: Bowel sounds present X 4 quads. Historical: - Allergies: 14:38 No Known Allergies; bp - Home Meds: 14:38 morphine 30 mg Oral CM24 1 cap once daily [Active]; Frankford 5-325 mg Oral tab 1 tab every bp 4 hours [Active]; aspirin 81 mg Oral chew 1 tab once daily [Active]; Lipitor 20 mg Oral tab 1 tab once daily [Active]; lisinopril 20 mg Oral tab 1 tab once daily [Active]; omeprazole 20 mg Oral cpDR 1 cap once daily [Active]; - PMHx: 14:38 breast cancer; Hyperlipidemia; Hypertension; bp - Immunization history:: Adult Immunizations. - Social history:: Smoking status: Patient/guardian denies using tobacco. - Ebola Screening: : Patient negative for fever greater than or equal to 101.5 degrees Fahrenheit, and additional compatible Ebola Virus Disease symptoms Patient denies exposure to infectious person Patient denies travel to an Ebola-affected area in the 21 days before illness onset No symptoms or risks identified at this time. Screenin:40 Abuse screen: Denies threats or abuse. Denies injuries from another. Nutritional jl7 screening: No deficits noted. Tuberculosis screening: No symptoms or risk factors identified. Fall Risk IV access (20 points). Total Grene Fall Scale indicates No Risk (0-24 pts). Assessment: 15:40 General: Appears in no apparent distress. uncomfortable, Behavior is calm, cooperative, jl7 appropriate for age. Pain: Denies pain. Neuro: Level of Consciousness is awake, alert, obeys commands, Oriented to person, place, time, situation. Cardiovascular: Heart tones S1 S2 present Patient's skin is warm and dry. Respiratory: Airway is patent Respiratory effort is even, unlabored, Respiratory pattern is regular, symmetrical, Breath sounds are clear bilaterally. GI: Abdomen is round non-distended, Bowel sounds present X 4 quads. Abd is soft and non tender X 4 quads. Reports constipation, Patient currently denies nausea, vomiting. : Urine is clear, Reports urinary frequency. EENT: No signs and/or symptoms were reported regarding the EENT system. Derm: Skin is pink, warm \T\ dry. Musculoskeletal: No signs and/or symptoms reported regarding the musculoskeletal system. 16:30 Reassessment: No changes from previously documented assessment. Patient and/or family jl7 updated on plan of care and expected duration. Pain level reassessed. Patient is alert, oriented x 3, equal unlabored respirations, skin warm/dry/pink. Vital Signs: 14:38 BP 154 / 82; Pulse 79; Resp 18; Temp 97.9; Pulse Ox 93% ; Weight 78.93 kg; Height 5 ft. bp 1 in. (154.94 cm); 16:09 BP 144 / 64; Pulse 76; Resp 15; Pulse Ox 99% on R/A; mh5 17:14 BP 144 / 67; Pulse 73; Resp 16; Pulse Ox 95% ; jl7 14:38 Body Mass Index 32.88 (78.93 kg, 154.94 cm) bp ED Course: 14:17 Patient arrived in ED. as 14:18 Billie Richard MD is Private Physician. as 14:36 Triage completed. bp 14:39 Andrés Mora, ROSA is Primary Nurse. bp 14:39 Arm band placed on left wrist. bp 14:44 Scottie Martin MD is Attending Physician. gs 15:07 CT completed. Patient tolerated procedure well. Patient moved to CT via wheelchair. mw3 Patient moved back from CT. 15:09 CT Lumbar Spine Wo Con In Process Unspecified. EDMS 15:40 Patient has correct armband on for positive identification. Placed in gown. Bed in low jl7 position. Call light in reach. Side rails up X 1. Pulse ox on. NIBP on. Warm blanket given. 15:45 Bladder scan completed. 115 mL. jl7 15:45 Initial lab(s) drawn, by me, sent to lab. Inserted saline lock: 20 gauge in right jl7 antecubital area, using aseptic technique. Blood collected. 17:14 No provider procedures requiring assistance completed. IV discontinued, intact, jl7 bleeding controlled, No redness/swelling at site. Pressure dressing applied. Administered Medications: 17:12 Not Given (Patient Refused): Dulcolax Suppository 10 mg IA once jl7 17:13 Not Given (Patient Refused): Milk of Magnesia Suspension 400 mg/5 mL 30 ml PO once jl7 Outcome: 16:49 Discharge ordered by . chucho 17:14 Discharged to home ambulatory. jl7 17:14 Condition: stable 17:14 Discharge instructions given to patient, Instructed on discharge instructions, follow up and referral plans. Demonstrated understanding of instructions, follow-up care. 17:15 Patient left the ED. jl7 Signatures: Dispatcher [employer] Stephanie Garcia Maria 5 Anay Galvin RN RN jl7 Scottie Martin MD MD gs Peltier, Brian, RN RN Cecilia Wallace mw3
--- NOTE | 2017-12-07 16:49 | EDPHYS ---
Physician Documentation [facility] Name: Ginny Raphael Age: 77 yrs Sex: Female : 1940 Arrival Date: 12/07/2017 Time: 14:17 Bed 15 Private MD: Billie Richard ED Physician Scottie Martin HPI: 12/07 16:38 This 77 yrs old Female presents to ER via Wheelchair with complaints of Back gs Pain. 16:38 The patient presents with pain that is chronic. The symptoms are located in the left gs low back and right low back. Onset: The symptoms/episode began/occurred 2 week(s) ago, and became worse and became persistent. The pain does not radiate. Associated signs and symptoms: Pertinent negatives: incontinence. Associated signs and symptoms: Pertinent negatives: numbness, tingling, urinary retention. Severity of symptoms: At their worst the symptoms were. Severity of symptoms: At their worst the symptoms were moderate, in the emergency department the symptoms are unchanged. The patient has experienced similar episodes in the past, a few times. SENT BY DR BARRERA FOR EVAL POSSIBLE URINARY RETENTION, CAUDA EQUINA. Historical: - Allergies: 14:38 No Known Allergies; bp - Home Meds: 14:38 morphine 30 mg Oral CM24 1 cap once daily [Active]; [place] 5-325 mg Oral tab 1 tab every bp 4 hours [Active]; aspirin 81 mg Oral chew 1 tab once daily [Active]; Lipitor 20 mg Oral tab 1 tab once daily [Active]; lisinopril 20 mg Oral tab 1 tab once daily [Active]; omeprazole 20 mg Oral cpDR 1 cap once daily [Active]; - PMHx: 14:38 breast cancer; Hyperlipidemia; Hypertension; bp - Immunization history:: Adult Immunizations. - Social history:: Smoking status: Patient/guardian denies using tobacco. - Ebola Screening: : Patient negative for fever greater than or equal to 101.5 degrees Fahrenheit, and additional compatible Ebola Virus Disease symptoms Patient denies exposure to infectious person Patient denies travel to an Ebola-affected area in the 21 days before illness onset No symptoms or risks identified at this time. ROS: 16:38 All other systems are negative. gs Exam: 16:38 Head/Face: Normocephalic, atraumatic. Eyes: Pupils equal round and reactive to light, gs extra-ocular motions intact. Lids and lashes normal. Conjunctiva and sclera are non-icteric and not injected. Cornea within normal limits. Periorbital areas with no swelling, redness, or edema. ENT: Nares patent. No nasal discharge, no septal abnormalities noted. Tympanic membranes are normal and external auditory canals are clear. Oropharynx with no redness, swelling, or masses, exudates, or evidence of obstruction, uvula midline. Mucous membranes moist. Neck: Trachea midline, no thyromegaly or masses palpated, and no cervical lymphadenopathy. Supple, full range of motion without nuchal rigidity, or vertebral point tenderness. No Meningismus. Chest/axilla: Normal chest wall appearance and motion. Nontender with no deformity. No lesions are appreciated. Cardiovascular: Regular rate and rhythm with a normal S1 and S2. No gallops, murmurs, or rubs. Normal PMI, no JVD. No pulse deficits. Respiratory: Lungs have equal breath sounds bilaterally, clear to auscultation and percussion. No rales, rhonchi or wheezes noted. No increased work of breathing, no retractions or nasal flaring. Abdomen/GI: Soft, non-tender, with normal bowel sounds. No distension or tympany. No guarding or rebound. No evidence of tenderness throughout. Skin: Warm, dry with normal turgor. Normal color with no rashes, no lesions, and no evidence of cellulitis. MS/ Extremity: Pulses equal, no cyanosis. Neurovascular intact. Full, normal range of motion. 16:38 Constitutional: The patient appears alert, awake, uncomfortable. 16:38 Back: pain, that is moderate, of the left low back and right low back. 16:38 Neuro: Cranial nerves: CN II- XII are normal as tested, Motor: moves all fours, strength is 5/5 in all extremities, Sensation: no obvious gross deficits, pin prick testing is normal, Deep tendon reflexes are 2+ (normal) in the right patellar, right Achilles, left patellar and left Achilles. Vital Signs: 14:38 BP 154 / 82; Pulse 79; Resp 18; Temp 97.9; Pulse Ox 93% ; Weight 78.93 kg; Height 5 ft. bp 1 in. (154.94 cm); 16:09 BP 144 / 64; Pulse 76; Resp 15; Pulse Ox 99% on R/A; mh5 17:14 BP 144 / 67; Pulse 73; Resp 16; Pulse Ox 95% ; jl7 14:38 Body Mass Index 32.88 (78.93 kg, 154.94 cm) bp MDM: 14:47 Patient medically screened. gs 16:38 Differential diagnosis: chronic back pain, Metastatic Disease URINARY RETENTION, gs CONSTIPATION, CAUDA EQUINA. Data reviewed: vital signs, nurses notes. ED course: NO SIGNS PATH FX, CAUDA EQUINA, POST VOID [address] BARRERA WILL SEE IN OFFICE. 12/07 14:49 Order name: Urinalysis; Complete Time: 16:36 12/07 14:49 Order name: CBC with Diff; Complete Time: 16:36 12/07 14:49 Order name: CT Lumbar Spine Wo Con; Complete Time: 15:50 12/07 14:49 Order name: Basic Metabolic Panel; Complete Time: 16:36 12/07 14:49 Order name: Bladder Scanner; Complete Time: 16:04 gs Administered Medications: 17:12 Not Given (Patient Refused): Dulcolax Suppository 10 mg OK once jl7 17:13 Not Given (Patient Refused): Milk of Magnesia Suspension 400 mg/5 mL 30 ml PO once jl7 Disposition: 12/07/17 16:49 Discharged to Home. Impression: Low back pain. - Condition is Stable. - Discharge Instructions: Back Pain, Adult, Bone Metastasis. - Medication Reconciliation Form, Thank You Letter, Antibiotic Education, Prescription Opioid Use form. - Follow up: Private Physician; When: 1 - 2 days; Reason: Re-evaluation by your physician. Signatures: Dispatcher [employer] EDAnay Joaquin RN RN jl7 Scottie Martin MD MD gs Peltier, Brian RN RN bp Corrections: (The following items were deleted from the chart) 17:15 16:49 12/07/2017 16:49 Discharged to Home. Impression: Low back pain. Condition is jl7 Stable. Forms are Medication Reconciliation Form, Thank You Letter, Antibiotic Education, Prescription Opioid Use. Follow up: Private Physician; When: 1 - 2 days; Reason: Re-evaluation by your physician. gs
[2017-12-07] MEDS ORDERED: BISACODYL 10 MG RECTAL SUPP ONE (17:01)
== END 2017-12-07 17:15 | disposition home or self-care (01) ==
LOC: ER 14:14
DX: M54.5 Low back pain (principal); I10 Essential (primary) hypertension; E78.5 Hyperlipidemia, unspecified; Z85.3 Personal history of malignant neoplasm of breast; Z79.82 Long term (current) use of aspirin
CPT/HCPCS: 36415; 72131; 80048; 81003; 85025; 99284

== ENCOUNTER 2017-12-16 11:54 | Inpatient (IN) | payer OTHER ==
--- OUTSIDE RECORDS SUMMARY | 2017-12-16 11:57 | XMS REPORT | Clinical Summary ---
:1940 Author Organization [facility] Address [address] [place] [address] Care Team Providers Name Role Phone Billie [...] mass 09/22/2017 Anesthesia Event Cardiothoracic Surgery Carlos Hicks, LENIN 09/22/2017 Procedure Pass Cardiothoracic Surgery 09/22/2017 [...] Only Cardiothoracic Surgery Yuni Villa MD after 12/15/2016 Family History Medical History Relation Name Comments [...] INTUBATION CDT Procedure Note - Carlos Hicks, WAREHOUSE SHIPPING SUPERVISOR - 09/22/2017 12:39 PM CDT Airway Date/Time: 09/22/2017 11:58 AM Performed by: CARLOS HICKS Authorized by: JUVENTINO ZUNIGA Location: OR Difficult Airway: No Anesthesiologist: JUVENTINO ZUNIGA Resident/WAREHOUSE SHIPPING SUPERVISOR/AA: CARLOS HICKS Performed by: resident/WAREHOUSE SHIPPING SUPERVISOR/AA Preoxygenated with 100% O2: Yes Mask [...] Patient Location: Pre-op Staff: Anesthesiologist: JUVENTINO ZUNIGA Resident/WAREHOUSE SHIPPING SUPERVISOR/AA: CARLOS HICKS Performed by: Resident/WAREHOUSE SHIPPING SUPERVISOR/AA Pre-procedure: patient identified, IV checked, site [...] the procedure well with no immediate complications [place] AN ELECTIVE ENDOTRACHEAL AIRWAY Routine 09/22/2017 11:41 AM CDT Procedure Note - Carlos Hicks CRNA - 09/22/2017 11:41 AM CDT Airway Date/Time: 09/22/2017 11:27 AM Performed by: CARLOS HICKS Authorized by: JUVENTINO ZUNIGA Location: OR Urgency: Elective Difficult Airway: No Anesthesiologist: JUVENTINO ZUNIGA Resident/WAREHOUSE SHIPPING SUPERVISOR/AA: CARLOS HICKS Performed by: resident/WAREHOUSE SHIPPING SUPERVISOR/AA Preoxygenated with 100% O2: Yes Mask [...] SPECTRAL CDT procedure are in COLOR DOPPLER ([id number]) the results section. CT CHEST W CONTRAST [...] Routine 02/11/2017 9:14 AM Results for this SET UP ME[employer]IC [employer]ACHINES procedure are in the results section. CT CHEST WO CONTRAST Routine 02/11/2017 12:00 AM SET UP MECH[employer]INES after 12/15/2016 Results XR Chest 1 Vw Portable (09/23/2017 [...] is clear. The heart is not enlarged. [id number] Procedure Note Hm Interface, Radiology Results Incoming [...] is clear. The heart is not enlarged. [id number] Performing Organization Address City/State/[place] [address] Sodium level, syringe (09/22/2017 12:59 PM)Only the most recent of3 resultswithin the time period is included. Sodium, syringe 138 135 - 148 mEq/L [facility] DEPARTMENT OF PATHOLOGY AND GENOMIC MEDICINE Specimen Blood Performing Organization Address [facility] Phone Number [facility] DEPARTMENT OF PATHOLOGY AND [address] [place] [address] Potassium, syringe (09/22/2017 12:59 PM)Only the most recent of3 resultswithin the time period is included. Potassium, syringe 3.7 3.5 - 5.0 mEq/L [facility] DEPARTMENT OF PATHOLOGY AND GENOMIC MEDICINE Specimen Blood Performing Organization Address [facility] Phone Number [facility] DEPARTMENT OF PATHOLOGY AND [address] [place] [address] Ionized calcium, arterial (09/22/2017 12:59 PM)Only the most recent of3 resultswithin the time period is included. Ionized calcium, arterial 1.14 1.11 - 1.32 mmol/L [facility] DEPARTMENT OF PATHOLOGY AND GENOMIC MEDICINE Specimen Blood Performing Organization Address [facility] Phone Number [facility] DEPARTMENT PATHOLOGY AND [address] [place] [address] Hemoglobin, syringe (09/22/2017 12:59 PM)Only the most recent of3 resultswithin the time period is included. Hemoglobin, syringe 9.6 (L) 12.0 - 16.0 g/dL [facility] DEPARTMENT OF PATHOLOGY AND GENOMIC MEDICINE Specimen Blood Performing Organization Address [facility] Phone Number [facility] DEPARTMENT OF PATHOLOGY AND [address] [place] [address] Glucose level, syringe (09/22/2017 12:59 PM)Only the most recent of3 resultswithin the time period is included. Glucose, syringe 101 (H) 65 - 99 mg/dL [facility] DEPARTMENT OF PATHOLOGY AND GENOMIC MEDICINE Specimen Blood Performing Organization Address [facility] Phone Number [facility] DEPARTMENT PATHOLOGY AND [address] [place] [address] Arterial blood gas, corrected (09/22/2017 12:59 PM) pH, arterial 7.48 (H) 7.35 - 7.45 [facility] DEPARTMENT OF PATHOLOGY AND GENOMIC MEDICINE pCO2, arterial 34 (L) 35 - 45 mmHg [facility] DEPARTMENT OF PATHOLOGY AND GENOMIC MEDICINE pO2, arterial 432 (H) 80 - 90 mmHg [facility] DEPARTMENT OF PATHOLOGY AND GENOMIC MEDICINE Temperature, Celsius 36.3 Degrees C [facility] DEPARTMENT OF PATHOLOGY AND GENOMIC MEDICINE O2 saturation, arterial 100 95 - 100 % [facility] DEPARTMENT OF PATHOLOGY AND GENOMIC MEDICINE pH, arterial corrected 7.50 [facility] DEPARTMENT OF PATHOLOGY AND GENOMIC MEDICINE pCO2, arterial corrected 33 mmHg [facility] DEPARTMENT OF PATHOLOGY AND GENOMIC MEDICINE pO2, arterial corrected 429 mmHg [facility] DEPARTMENT OF PATHOLOGY AND GENOMIC MEDICINE Base excess, arterial 3 (H) -2 - 2 mEq/L [facility] DEPARTMENT OF PATHOLOGY AND GENOMIC MEDICINE Specimen Blood Performing Organization Address City/[facility] Phone Number [facility] DEPARTMENT OF PATHOLOGY AND [address] [place] [phone] [facility] MEDICINE Arterial blood gas (09/22/2017 12:26 PM)Only the most recent of2 resultswithin the time period is included. pH, arterial 7.47 (H) 7.35 - 7.45 [facility] DEPARTMENT OF PATHOLOGY AND GENOMIC MEDICINE pCO2, arterial 37 35 - 45 mmHg [facility] DEPARTMENT OF PATHOLOGY AND GENOMIC MEDICINE pO2, arterial 473 (H) 80 - 90 mmHg [facility] DEPARTMENT OF PATHOLOGY AND GENOMIC MEDICINE Bicarbonate, arterial 26.7 21.0 - 28.0 mmol/L [facility] DEPARTMENT OF PATHOLOGY AND GENOMIC MEDICINE Base excess, arterial 3 (H) -2 - 2 mEq/L [facility] DEPARTMENT OF PATHOLOGY AND GENOMIC MEDICINE O2 saturation, arterial 100 95 - 100 % [facility] DEPARTMENT OF PATHOLOGY AND GENOMIC MEDICINE Specimen Blood Performing Organization Address City/[facility] Phone Number [facility] DEPARTMENT OF PATHOLOGY AND [address] [place] [phone] GENOMIC MEDICINE Cytology (non-gynecological) request (09/22/2017 12:25 PM)Only the most recent of2 resultswithin the time period is included. [facility] DEPARTMENT OF PATHOLOGY AND GENOMIC MEDICINE Cytology See link below for PDF [facility] DEPARTMENT OF (non-gynecological) report Lab Report PATHOLOGY AND GENOMIC MEDICINE Result status This is Final Report to [facility] DEPARTMENT OF [id number] PATHOLOGY AND GENOMIC MEDICINE Performing Organization Address City/[facility] Phone Number [facility] DEPARTMENT OF PATHOLOGY AND [address] [place] [phone] [place] [address] Estimated GFR (09/22/2017 9:11 AM) GFR Non Af Amer 81 mL/min/1.73 m2 [facility] DEPARTMENT OF PATHOLOGY AND GENOMIC MEDICINE GFR Af Amer >90 mL/min/1.73 m2 [facility] DEPARTMENT OF Comment: PATHOLOGY AND GENOMIC Chronic [...] Americans. Specimen Plasma specimen Performing Organization Address City/[facility] Phone Number [facility] DEPARTMENT OF PATHOLOGY AND [address] [place] [phone] [facility] Partial thromboplastin time, activated (09/22/2017 9:11 AM) PTT 40.8 (H) 23.0 - 36.0 sec [facility] DEPARTMENT OF PATHOLOGY Comment: AND [facility] PTT therapeutic range for unfractionated heparin is 61.0-112.0 seconds which corresponds to Anti-Xa 0.3-0.7 U/ml. Specimen Blood Performing Organization Address City/[facility] Phone Number [facility] DEPARTMENT OF PATHOLOGY AND [address] [place] [phone] [facility] Prothrombin time with INR (09/22/2017 9:11 AM) Prothrombin time 15.6 (H) 12.0 - 15.0 sec [facility] DEPARTMENT OF PATHOLOGY AND GENOMIC MEDICINE INR 1.2 [facility] DEPARTMENT OF Comment: PATHOLOGY AND GENOMIC The International Normalized Ratio (INR) is a therapeutic MEDICINE monitoring tool for patients who are stable on oral anticoagulant therapy. An INR of 2.0-3.0 is suggested for deep vein thrombosis/pulmonary embolism. Specimen Blood Performing Organization Address City/[facility] Phone Number [facility] DEPARTMENT OF PATHOLOGY AND [address] [place] [phone] [facility] CBC with platelet and differential (09/22/2017 9:11 AM) WBC 8.85 4.50 - 11.00 k/uL [facility] DEPARTMENT OF PATHOLOGY AND GENOMIC MEDICINE RBC 4.11 (L) 4.20 - 5.50 m/uL [facility] DEPARTMENT OF PATHOLOGY AND GENOMIC MEDICINE HGB 10.7 (L) 12.0 - 16.0 g/dL [facility] DEPARTMENT OF PATHOLOGY AND GENOMIC MEDICINE HCT 34.4 (L) 37.0 - 47.0 % [facility] DEPARTMENT OF PATHOLOGY AND GENOMIC MEDICINE MCV 83.7 82.0 - 100.0 fL [facility] DEPARTMENT OF PATHOLOGY AND GENOMIC MEDICINE MCH 26.0 (L) 27.0 - 34.0 pg [facility] DEPARTMENT OF PATHOLOGY AND GENOMIC MEDICINE MCHC 31.1 31.0 - 37.0 g/dL [facility] DEPARTMENT OF PATHOLOGY AND GENOMIC MEDICINE RDW - SD 39.6 37.0 - 55.0 fL [facility] DEPARTMENT OF PATHOLOGY AND GENOMIC MEDICINE MPV 10.0 8.8 - 13.2 fL [facility] DEPARTMENT OF PATHOLOGY AND GENOMIC MEDICINE Platelet count 346 150 - 400 k/uL [facility] DEPARTMENT OF PATHOLOGY AND GENOMIC MEDICINE Nucleated RBC 0.00 /100 WBC [facility] DEPARTMENT OF PATHOLOGY AND GENOMIC MEDICINE Neutrophils 73.1 (H) 39.0 - 69.0 % [facility] DEPARTMENT OF PATHOLOGY AND GENOMIC MEDICINE Lymphocytes 19.3 (L) 25.0 - 45.0 % [facility] DEPARTMENT OF PATHOLOGY AND GENOMIC MEDICINE Monocytes 6.3 0.0 - 10.0 % [facility] DEPARTMENT OF PATHOLOGY AND GENOMIC MEDICINE Eosinophils 0.5 0.0 - 5.0 % [facility] DEPARTMENT OF PATHOLOGY AND GENOMIC MEDICINE Basophils 0.5 0.0 - 1.0 % [facility] DEPARTMENT OF PATHOLOGY AND GENOMIC MEDICINE Immature granulocytes 0.3Comment: 0.0 - 1.0 % [facility] DEPARTMENT OF "Immature PATHOLOGY AND GENOMIC granulocytes" MEDICINE (promyelocytes, myelocytes, metamyelocytes) Specimen Blood Performing Organization Address City/State/Zipcode Phone Number [facility] DEPARTMENT OF PATHOLOGY AND [address] [place] [phone] [facility] RBC (09/22/2017 9:11 AM) Product name Red Blood Cells -1, [facility] DEPARTMENT OF Leukored PATHOLOGY AND GENOMIC MEDICINE Unit number [id number] [facility] DEPARTMENT OF PATHOLOGY AND GENOMIC MEDICINE Product code [id number] [facility] DEPARTMENT OF PATHOLOGY AND GENOMIC MEDICINE Dispense status Returned to not [facility] DEPARTMENT OF transfused PATHOLOGY AND GENOMIC MEDICINE Blood expiration date [facility] DEPARTMENT OF PATHOLOGY AND GENOMIC MEDICINE Blood type code 0600 [facility] DEPARTMENT OF PATHOLOGY AND GENOMIC MEDICINE Blood type A NEGATIVE [facility] DEPARTMENT OF PATHOLOGY AND GENOMIC MEDICINE Product name Apheresis -1 LR #1 [facility] DEPARTMENT OF PATHOLOGY AND GENOMIC MEDICINE Unit number [id number] [facility] DEPARTMENT OF PATHOLOGY AND GENOMIC MEDICINE Product code [id number] [facility] DEPARTMENT OF PATHOLOGY AND GENOMIC MEDICINE Dispense status Returned to not [facility] DEPARTMENT OF transfused PATHOLOGY AND GENOMIC MEDICINE Blood expiration date [facility] DEPARTMENT OF PATHOLOGY AND GENOMIC MEDICINE Blood type code 0600 [facility] DEPARTMENT OF PATHOLOGY AND GENOMIC MEDICINE Blood type A NEGATIVE [facility] DEPARTMENT OF PATHOLOGY AND GENOMIC MEDICINE Performing Organization Address City/[facility] Phone Number [facility] DEPARTMENT OF PATHOLOGY AND [address] [place] [address] GENOMIC MEDICINE Type and screen (09/22/2017 9:11 AM) ABO grouping A [facility] DEPARTMENT OF PATHOLOGY AND GENOMIC MEDICINE Rh type NEG [facility] DEPARTMENT OF PATHOLOGY AND GENOMIC MEDICINE Antibody screen (gel) NEG [facility] DEPARTMENT OF PATHOLOGY AND GENOMIC MEDICINE Specimen Blood Performing Organization Address City/[facility] Phone Number [facility] DEPARTMENT OF PATHOLOGY AND [address] [place] [phone] GENOMIC MEDICINE Basic metabolic panel (09/22/2017 9:11 AM) Sodium 140 135 - 148 mEq/L [facility] DEPARTMENT OF PATHOLOGY AND GENOMIC MEDICINE Potassium 4.3 3.5 - 5.0 mEq/L [facility] DEPARTMENT OF PATHOLOGY AND GENOMIC MEDICINE Chloride 99 98 - 112 mEq/L [facility] DEPARTMENT OF PATHOLOGY AND GENOMIC MEDICINE CO2 30 24 - 31 mEq/L [facility] DEPARTMENT OF PATHOLOGY AND GENOMIC MEDICINE Anion gap 11@ANIO 7 - 15 mEq/L [facility] DEPARTMENT OF PATHOLOGY AND GENOMIC MEDICINE BUN 15 8 - 23 mg/dL [facility] DEPARTMENT OF PATHOLOGY AND GENOMIC MEDICINE Creatinine 0.7 0.5 - 0.9 mg/dL [facility] DEPARTMENT OF PATHOLOGY AND GENOMIC MEDICINE Glucose 108 (H) 65 - 99 mg/dL [facility] DEPARTMENT OF PATHOLOGY AND GENOMIC MEDICINE Calcium 10.3 (H) 8.8 - 10.2 mg/dL [facility] DEPARTMENT OF PATHOLOGY AND GENOMIC MEDICINE Specimen Plasma specimen Performing Organization Address City/[facility] Phone Number [facility] DEPARTMENT OF PATHOLOGY AND [address] [place] [phone] GENOMIC MEDICINE Surgical pathology request (09/22/2017 8:54 AM)Only the most recent of3 resultswithin the time period is included. [facility] DEPARTMENT OF PATHOLOGY AND GENOMIC MEDICINE Surgical pathology See link below for PDF Lab [facility] DEPARTMENT OF report Report PATHOLOGY AND GENOMIC MEDICINE Result status This is Supplemental Report [facility] DEPARTMENT OF to [id number] PATHOLOGY AND GENOMIC MEDICINE Performing Organization Address City/[facility] Phone Number [facility] DEPARTMENT OF PATHOLOGY AND [address] [place] [address] MEDICINE Cv exercise treadmill stress (no imaging) (09/03/2017 11:05 AM) Resting HR 85 [facility] Resting BP 173 [facility] Peak MET Achieved 1.0 [facility] Protocol Name REGADENO [facility] Time in Exercise Phase 00:01:00 [facility] Max Systolic BP 180 [facility] Max Diastolic BP 80 [facility] Max Heart Rate 113 [facility] Max Predicted Heart Rate 144 [facility] Target HR Formula (220 - Age)*100% [facility] Test Indication PRE-OP CLEARENCE [facility] Arrhy During Ex [facility] ECG Interp Before EX [facility] ECG Interp During Ex [facility] Ex Summary Comment [facility] Overall HR Response to [facility] Exercise Overall BP Response To [facility] Exercise Reason for Termination [facility] Stress Test Impression -Waveform interpreted in report [facility] associated with image study. No interpretation is provided as part of this Stress ECG report.-Electronically Signed By Rashad GRACE, Reyna Garcia ([id number]), city editor Delmi Santizo ([id number]) on 09/03/2017 11:57:16 AM Performing Organization Address City/[facility] Phone Number [facility] [address] [phone] Cv myocardial perfusion (09/03/2017 11:05 AM) Narrative Performed At [facility] Nuclear Cardiology and Cardiac CT [address] [place] [address] Myocardial Perfusion Imaging Report Stress ECG tracings are available in MUSE, EPIC and CV Web All ECG interpretations are included in this report Pat.Name:NYASIA ESTHER Pat.ID:[id number] St.Date: 09/03/2017Refer.MD:OCTAVIO GUERRA MD Exam Time: 10:13:00 AM Study Type:Myocardial Perfusion Imaging Height:61inWeight: 180lb BSA: 1.81 m2 DOBAge:1940,77Y Sex: FEMALEBP:173/77 HR:83 bpm Nuclear Tech:Landon Granado, [facility], [employer]/Molly Lopez, [facility], [employer]/Aysha Hamlin, [facility] Pat. Stat.:Outpatient Nuclear Event ID:[id number] Order ID:[id number] Reason for Study:Pre-op evaluation, intermediate/high risk patient [...] CDT Nuclear Cardiology and Cardiac CT [address] [place] [address] Myocardial Perfusion Imaging Report Stress ECG tracings are available in [employer] and [employer] All ECG interpretations are included in this report Pat.Name: ESTHER MURRELL Pat.ID: [id number] St.Date: 09/03/2017 Refer.MD: OCTAVIO GUERRA MD Exam Time: 10:13:00 AM Study Type:Myocardial Perfusion Imaging Height: 61in Weight: 180lb BSA: 1.81 m2 Age: 13 1940,77Y Sex: FEMALE BP: 173/77 HR: 83 bpm Nuclear Tech:DOMINGA DoMT, FANNY/LUIS MANUEL Chapman, ARRSelina/LUIS MANUEL Marie Pat. Stat.:Outpatient Nuclear Event ID:[id number] Order ID: [id number] Reason for Study:Pre-op evaluation, intermediate/high risk patient [...] PM Reyna Solorzano MD Performing Organization Address [facility] Phone Number [facility] [address] [place] [address] Echocardiogram complete w contrast and 3D if needed (09/03/2017 9:35 AM) Narrative Performed At [facility] Echocardiography Report [address]Name:ESTHER MURRELL.ID:[id number] .Date: 09/03/2017Refer.MD:OCTAVIO GUERRA MD Exam Time: 8:40:00 AMStudy Type:Routine Echo Height:60inWeight: 184lb BSA: 1.8 g0IGSWvy:1940,77Y Sex: FEMALEHR:90 bpm Sonogrphr: Octavio Thomas, [facility]. Stat.:Outpatient Study Status:Final Echo Event ID:[id number] Order ID:[id number] Reason for Study:Abnormal EKG [R94.31 (ICD-10-CM)] Procedures:2D [...] use of contrast. MEASUREMENTS: 2D Parasternal Long Mccaskill LVOT 1.6 cmLA Ds3.4 cm LVIDd4.5 cmIndex2.5 cm/m Ao An2.1 cm LVIDs2.9 cmAo Rtd 2.8 cm Index1.6 cm/m LV%fs 35.6 % LV Utzf420.5 g(87-129) IVSd 0.7 cmLVM Index 58.1 g/m2 LVPWd0.8 cmRWT0.4 LA Sng Plane LA Area 13.7 cm2(8.8-23.4) LA Vol31.7 ml Index17.6 ml/m LA LngAx 5 cm DOPPLER AV For Flow/EMRE AV pkVel 161.9 cm/s (100-170) AV AC/ET 0.2 AV mnVel 104.3 cm/Anthony TVI27.5 cm AV pkPG 10.5 mmHgAVpkAcRt 3680.9 cm/s2 AV Mean G5.1 mmHgAV TzBr307.5 cm/s2 AV AC 44 msec (83-118) AV Area1.9 cm2(3-5) AV ET264 msec LVOT For Flow LVOT Area2 cm2 LVOTmnPG 3.3 mmHg PLPEakWvp812.9 cm/sLVOT TVI25.4 cm LVOTpkPG 6.6 mmHgLVOT SV 51.1 ml Signed 09/04/2017 01:09 PM Maurice Landis MD Procedure Note Interface, Radiology Results In - 09/04/2017 1:10 PM CDT Echocardiography Report [address] [place] [address] Pat.Name: ESTHER MURRELL Pat.ID: [id number] St.Date: 09/03/2017 Refer.MD: OCTAVIO GUERRA MD Exam Time: 8:40:00 AM Study Type:Routine Echo Height: 60in Weight: 184lb BSA: 1.8 m2 Age: 13 1940,77Y Sex: FEMALE HR: 90 bpm Sonogrphr: JONO Mckeon Pat. Stat.:Outpatient Study Status:Final Echo Event ID:[id number] Order ID: [id number] Reason for Study:Abnormal EKG [R94.31 (ICD-10-CM)] Procedures:2D [...] use of contrast. MEASUREMENTS: 2D Parasternal Long Mccaskill LVOT 1.6 cm LA Ds 3.4 cm [...] PM Maurice Landis MD Performing Organization Address City/[facility] Phone Number [facility] [address] [place] [address] CT Chest W Contrast (08/17/2017) Narrative Performed At CT Chest External Study (08/12/2017 9:27 AM)Only the most recent of2 resultswithin the time period is included. Narrative Performed At This exam was not acquired at a [facility] facility and has not been [facility] interpreted by a [facility] Provider.The exam was imported into our imaging system for comparisons purposes. Performing Organization Address City/[facility]/Zipcode Phone Number [facility] [address] [place] [address] PET/CT Skull Base Mid Thigh External Study (08/12/2017) Narrative Performed At XR Chest External Study (07/02/2017 11:31 AM) Narrative Performed At This exam was not acquired at a [facility] facility and has not been [facility] interpreted by a [facility] Provider.The exam was imported into our imaging system for comparisons purposes. Performing Organization Address City/State/Zipcode Phone Number [facility] [address] [place] [address] XR Chest 2 Vw (07/02/2017) Narrative Performed At CT Chest Wo Contrast (02/11/2017) Narrative Performed At after 12/15/2016 Insurance Payer Benefit Plan / Group Subscriber ID Type Phone Address [facility] MEDICARE [facility] CONNECTED (MEDICARE-MEDICAID xxxxxxxxx HMO PLAN) [facility] CHOICE/CHOICE + xxxxxxxxx HMO/PPO
--- OUTSIDE RECORDS SUMMARY | 2017-12-16 11:57 | XMS REPORT ---
[...] Status Dosage System Date Date Omeprazole ND 71527491538 20MG orally once Active one daily tablet Zyrtec Allergy ND 76456760366 10 MG Orally Active 1 tablet Once a day Atorvastatin ND 69734910961 20 MG Orally Active 1 tablet Calcium Once a day Lisinopril ND 58872097682 20 MG Orally Active 1 tablet Once a day Vitamin D3 ND 56284351344 50,000 PO once a Active one tab week Results No Known Results Summary Purpose eClinicalWorks Submission
--- OUTSIDE RECORDS SUMMARY | 2017-12-16 11:57 | XMS REPORT ---
:1940 Author Organization [employer] Care Team Providers Name Role Phone Richard, Na Provider Role Unavailable Allergies, Adverse Reactions, Alerts Substance Reaction Event Type N.K.D.A. Info Not Available Non Drug Allergy Problems Problem Type Condition Code Onset Dates Condition Status Assessment Elevated alkaline phosphatase level R74.8 Active Problem Hyperlipidemia, unspecified E78.5 Active hyperlipidemia type Assessment Liver lesion, right lobe K76.9 Active Problem Gastroesophageal reflux disease K21.9 Active without esophagitis Assessment Mass of right lung R91.8 Active Problem Pleural effusion in other J91.8 Active conditions classified elsewhere Problem Mixed hyperlipidemia E78.2 Active Problem Solitary pulmonary nodule R91.1 Active Problem Metastatic breast cancer C50.919 Active Problem Abnormal PET scan of colon R94.8 Active Assessment Gastroesophageal reflux disease K21.9 Active without esophagitis Assessment Seasonal allergic rhinitis due to J30.1 Active pollen Problem 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 Assessment Pleural effusion in other J91.8 Active conditions classified elsewhere Problem Elevated alkaline phosphatase level R74.8 Active Problem Pleural effusion J90 Active Problem Liver lesion, right lobe K76.9 Active Problem Mass of right lung R91.8 Active Assessment Hypertension, unspecified type I10 Active Assessment Metastatic breast cancer C50.919 Active Assessment Mixed hyperlipidemia E78.2 Active Problem Hypertension, unspecified type I10 Active Problem Seasonal allergic rhinitis due to J30.1 Active pollen Problem Obesity (BMI 30.0-34.9) E66.9 Active Problem Vitamin D deficiency E55.9 Active Medications Medication Code Code Instructions Start End Status Dosage System Date Date Lisinopril ND 99890711971 20 MG Orally Active 1 tablet Once a day Zyrtec Allergy ND 30747025480 10 MG Orally Active 1 tablet Once a day Omeprazole ND 74788502474 20MG orally once Active one daily tablet Atorvastatin ND 34660307141 20 MG Orally Active 1 tablet Calcium Once a day Vitamin D3 ND 45643129081 50,000 PO once a Active one tab week Results No Known Results Summary Purpose [employer] Submission
[2017-12-16 12:27] LABS: Absolute Lymphocytes (CBC) 0.6 K/uL (0.7-4.9); Absolute Monocytes 0.9 K/uL (0.1-1.3); Absolute Neutrophil 8.9 K/uL (1.8-8.0); Basophils % 0.6 % (0-1.3); Hematocrit 33.3 % (36.0-45.0); Lymphocytes % 5.9 % (15.3-44.8); MCH 25.5 pg (27.0-35.0); MPV 8.5 fL (7.6-11.3); Monocytes % 8.4 % (3.3-12.3); RBC Red Blood Cell Count 4.11 M/uL (3.86-4.86)
[2017-12-16 12:42] LABS: Potassium 4.5 mmol/L (3.5-5.1)
[2017-12-16] MEDS ORDERED: NA CHLORIDE 0.9% 1,000 ML ONE (12:47)
--- NOTE | 2017-12-16 12:50 | RAD REPORT ---
EXAM DESCRIPTION: CT - Head Brain Wo Cont - 12/16/2017 12:29 pm CLINICAL HISTORY: Transient alteration of awareness, dizziness, numbness and tingling, history of me tastatic breast carcinoma COMPARISON: Bone scan November 11, 2017. TECHNIQUE: Axial 5 mm thick images of the head were obtained without IV contrast. All CT scans are performed using dose optimization technique as appropriate and may include automated exposure control or mA/KV adjustment according to patient size. FINDINGS: No intracranial hemorrhage, mass, edema or shift of mid-line structures. No acute infarcti on changes seen. No abnormal extra-axial fluid collections. Ventricles are normal. Physiologic basal ganglia calcifications are present. Arterial and choroid plexus calcifications also present. Mastoid air cells and visualized portions of the paranasal sinuses are clear. No skull fracture. There is hyperostosis in the inner table. Ill-defined areas of lucency seen in the diploic space of the right temporal and right frontal bones. These are suspicious for metastatic dis ease. October bone scan imaging showed punctate areas of skull abnormalities. IMPRESSION: No hemorrhage, mass or acute brain parenchymal abnormality. Lucent areas in the right-side of the skull suspicious for metastatic disease. These match a bone sc an study from October.
--- NOTE | 2017-12-16 12:53 | RAD REPORT ---
EXAM DESCRIPTION: CT - C Spine Wo Con - 12/16/2017 12:29 pm CLINICAL HISTORY: Neck pain, metastatic breast carcinoma history COMPARISON: None. TECHNIQUE: Axial 2 mm thick images of the cervical spine were obtained with sagittal and coronal rec onstruction images generated and reviewed. All CT scans are performed using dose optimization technique as appropriate and may include automated exposure control or mA/KV adjustment according to patient size. FINDINGS: Cervical body height and alignment are normal. No disk space narrowing. Anterior endplate spurs are seen at multiple levels. Facet joint degenerative changes are also present but relatively m ild. Central canal detail is inherently limited on CT imaging. No gross evidence for a large disc herniati on. Small areas diminished attenuation present in the left-side of the C2 body and C5 body. Subtle lucent change seen in the posterior aspect T1 body. These are probably metastatic given the overall appeara nce of the bone scan. No pending pathologic fracture. IMPRESSION: No compression fracture or acute vertebral body finding. No pending pathologic fracture. Patient has several areas of diminished attenuation within the vertebral bodies as detailed. These ar e likely metastatic but do not cause cortical disruption or pending collapse. No gross abnormality of the central canal. Central canal assessment is limited on CT imaging.
--- NOTE | 2017-12-16 13:01 | RAD REPORT ---
EXAM DESCRIPTION: CT - Thoracic Spine W/o Cont - 12/16/2017 12:30 pm CLINICAL HISTORY: Back pain, metastatic breast carcinoma COMPARISON: Bone scan October 2017 TECHNIQUE: Axial 2 mm thick images of the thoracic spine were obtained with sagittal and coronal rec onstruction images generated and reviewed. All CT scans are performed using dose optimization technique as appropriate and may include automated exposure control or mA/KV adjustment according to patient size. FINDINGS: T1-T6 bodies are normal in height. Within these vertebrae there are few punctate areas of decreased attenuation that are potentially metastatic sites. Mixed lytic and blastic changes are present in the T6 body showing approximately 20% wedge compressio n. This is a known metastatic lesion seen on the bone scan. Posterior wall shows no encroachment into the central canal. No significant findings of the T7 and T8 bodies. Sclerotic changes in the superior T9 body match metastatic activity on the bone scan. No pathologic e ncroachment into the central canal. T9-10 disc space narrowing and endplate spurring cause encroachme nt into the central canal. Sclerotic focus in the superior endplate T10 and T11 could be Schmorl's no delfina or metastatic disease. Schmorl's node is favored based on the bone scan activity. Expansile lucent lesions seen in the posterior right seventh rib again matching the bone scan finding s. Circumferential pleural thickening of the right hemithorax noted but not fully assessed on this st udy. No paraspinal soft tissue mass component. Patient has right pleural effusion and right lower lobe opa cification likely all neoplastic in origin. This area is not fully assessed. Central canal detail is inherently limited on CT imaging. IMPRESSION: Metastatic disease clearly involves the T6 an T9 bodies. No pending compression fracture seen. Possible metastatic disease superior endplates of T10 and T11 without loss in overall height. Additional degenerative changes are present and possible small lytic metastatic changes in other thor acic vertebrae. No significant encroachment into the central canal for metastatic disease. T9-10 degenerative disc an d endplate change does cause spurring into the central canal. Central canal detail is inherently limited. Evidence for right hemithorax pleural and lung parenchymal primary or metastatic disease. These brennan es are not fully imaged on the CT thoracic spine study. Rib lesions are present detailed above and on separate October bone scan.
--- NOTE | 2017-12-16 13:06 | RAD REPORT ---
EXAM DESCRIPTION: CT - Spine Lumbar Wo Con - 12/16/2017 12:30 pm CLINICAL HISTORY: Back pain, pelvic pain, known bony metastatic disease COMPARISON: CT lumbar spine December 07, bone scan November 10 TECHNIQUE: Thin section axial imaging of the lumbar spine was performed. Sagittal and coronal recon struction images were generated and reviewed. All CT scans are performed using dose optimization technique as appropriate and may include automated exposure control or mA/KV adjustment according to patient size. FINDINGS: Mixed lytic and sclerotic changes are present in the L1 body with a 20% wedge configuratio n. There is buckling of the posterior wall that is new or slightly progressive from the prior study. Interval change is minimal but does appear to be progressive. Metastatic disease extends into the pos terior elements and pedicles at L1. Significant metastatic disease involves the right side of the L5 body. No loss in height. Large metas tatic lesion with pathologic fracture noted in the right sacral ala. L2-L4 bodies are normal in height. There are areas of attenuation abnormality believed to be small me tastatic deposits as well. No pending fracture of these 3 vertebrae. Central canal detail is inherently limited. Disc bulge changes are present at L3-4. Disc herniation i s not suspected. Degenerative disc disease seen throughout the spine. Facet degenerative changes are present. IMPRESSION: Metastatic disease in the L1 body with a slight progression in wedging and a slight prog ression in the posterior wall buckling since the short interval December 07 study. No significant centr al canal narrowing at this time. Metastatic disease in the L5 body not substantially different from December 07. Metastatic lesion and pathologic fracture right sacral ala not significantly different from December 07 . Central canal detail is inherently limited. No gross change from comparison.
[2017-12-16 13:09] LABS: Anisocytosis 1+; Blood Morphology Comment NOT SEEN (NOT SEEN); Hypochromasia 1+; Platelet Estimate ADEQ; Polychromasia 2+; Urine White Blood Cell Casts OK
--- NOTE | 2017-12-16 13:17 | RAD REPORT ---
EXAM DESCRIPTION: RADChest Single View12/16/2017 12:59 pm CLINICAL HISTORY: Breast cancer/shortness of breath COMPARISON: June 2017 FINDINGS: Small to moderate right pleural effusion is present. Right lung opacities may represent a telectasis or mass. No obvious change since the prior exam. Left lung appears clear of acute infiltrate. Heart is normal size
--- NOTE | 2017-12-16 13:36 | ER ---
Nurse's Notes [facility] Name: Ginny Raphael Age: 77 yrs Sex: Female : 1940 Arrival Date: 12/16/2017 Time: 12:01 Bed 2 Private MD: Diagnosis: Weakness;Acute kidney failure Presentation: 12/16 12:14 Presenting complaint: EMS states: pt reports having BLE weakness lasting approx 10 mins sg happening only once today, never in the past. report having neck that started this morning, is intermittent, also reports having episodes of intermittent memory loss, or feeling disoriented, these episodes last only minutes as well. denies N/V/D/F. Transition of care: patient was not received from another setting of care. Onset of symptoms was December 16, 2017. Risk Assessment: Do you want to hurt yourself or someone else? Patient reports no desire to harm self or others. Initial Sepsis Screen: Does the patient meet any 2 criteria? No. Patient's initial sepsis screen is negative. Does the patient have a suspected source of infection? No. Patient's initial sepsis screen is negative. Care prior to arrival: None. 12:14 Method Of Arrival: EMS: [facility] sg 12:14 Acuity: VANITA 3 sg Historical: - Allergies: 12:17 No Known Allergies; sg - Home Meds: 12:17 aspirin 81 mg Oral chew 1 tab once daily [Active]; Lipitor 20 mg Oral tab 1 tab once sg daily [Active]; lisinopril 20 mg Oral tab 1 tab once daily [Active]; morphine 30 mg Oral CM24 1 cap once daily [Active]; [place] 5-325 mg Oral tab 1 tab every 4 hours [Active]; omeprazole 20 mg Oral cpDR 1 cap once daily [Active]; - PMHx: 12:12 breast cancer; Hyperlipidemia; Hypertension; iw - Immunization history:: Adult Immunizations up to date. - Social history:: Smoking status: Patient/guardian denies using tobacco. - Ebola Screening: : Patient negative for fever greater than or equal to 101.5 degrees Fahrenheit, and additional compatible Ebola Virus Disease symptoms Patient denies exposure to infectious person Patient denies travel to an Ebola-affected area in the 21 days before illness onset No symptoms or risks identified at this time. - Family history:: not pertinent. - Hospitalizations: : No recent hospitalization is reported. Screenin:20 Abuse screen: Denies threats or abuse. Denies injuries from another. Nutritional sg screening: No deficits noted. Tuberculosis screening: Never had TB. The patient has not been NPO before screening. The patient is alert, able to follow commands. The patient does not exhibit slurred or garbled speech The patient is not exhibiting difficulty speaking. The patient does not exhibit difficulty understanding words. The patient is able to swallow own secretions with no drooling or need for suction. Patient tolerated one teaspoon of water. No drooling, immediate coughing, gurgling, or clearing of the throat was noted. The patient tolerated 90mL of water. No drooling, immediate coughing, gurgling, or clearing of the throat was noted. The patient passed the bedside swallow screening. Oral medications may be given as ordered. Contact Physician for further diet orders. Provider notified of bedside swallow screening results: Bishnu Christensen MD. Fall Risk None identified. Assessment: 12:20 General: Appears in no apparent distress. well groomed, well developed, well nourished, sg Behavior is calm, cooperative, appropriate for age. Pain: Complains of pain in neck Quality of pain is described as aching, Pain began gradually, 1 hour ago. Neuro: Level of Consciousness is awake, alert, obeys commands, Oriented to person, place, time, situation, Pattern Technician are equal bilaterally Moves all extremities. Full function Gait is steady, Speech is normal, Facial symmetry appears normal, Pupils are PERRLA. Cardiovascular: Capillary refill is brisk in bilateral fingers Patient's skin is warm and dry. Respiratory: Airway is patent Respiratory effort is even, unlabored, Respiratory pattern is regular, symmetrical. GI: No signs and/or symptoms were reported involving the gastrointestinal system. : No signs and/or symptoms were reported regarding the genitourinary system. EENT: No signs and/or symptoms were reported regarding the EENT system. Derm: Skin is pink, warm \T\ dry. Musculoskeletal: Circulation, motion, and sensation intact. Range of motion: intact in all extremities, Swelling absent. 14:36 Reassessment: Patient appears in no apparent distress at this time. Patient and/or sg family updated on plan of care and expected duration. Pain level reassessed. Patient is alert, oriented x 3, equal unlabored respirations, skin warm/dry/pink. Patient denies pain at this time. 14:59 Reassessment: Patient appears in no apparent distress at this time. Patient and/or sg family updated on plan of care and expected duration. Pain level reassessed. Patient is alert, oriented x 3, equal unlabored respirations, skin warm/dry/pink. at bedside evaluating pt at this time. 16:40 Reassessment: report called to second floor, nurse unavailable at this time, nurse sg requesting a call back, pt and pt family updated on delay, pt and pt family stated understanding. 16:47 Reassessment: Patient appears in no apparent distress at this time. Patient and/or sg family updated on plan of care and expected duration. Pain level reassessed. Patient is alert, oriented x 3, equal unlabored respirations, skin warm/dry/pink. pt daughter, Mariel, at bedside, requesting a contact number be left with pt at this time, pt reports phone number of [phone] for contact. 16:59 Reassessment:. sg 17:24 Reassessment: Renal Doctor at bedside at this time, evaluating pt. sg Vital Signs: 12:01 BP 134 / 60; Pulse 103; Resp 18 S; Temp 97.4; Pulse Ox 88% on R/A; iw 12:10 Pulse Ox 100% on 2 lpm NC; sg 14:34 BP 132 / 60; Pulse 89; Resp 13; Pulse Ox 100% on 2 lpm NC; sg 16:59 BP 112 / 50; Pulse 88; Resp 14; Temp 97.4; Pulse Ox 98% on R/A; sg ED Course: 12:00 First set of blood cultures drawn by ma. jb1 12:01 Patient arrived in ED. iw 12:02 Bishnu Christensen MD is Attending Physician. rn 12:10 Bharath Ansari RN is Primary Nurse. sg 12:15 Second set of blood cultures drawn by ma. jb1 12:16 Triage completed. sg 12:16 Arm band placed on. sg 12:20 Patient has correct armband on for positive identification. Bed in low position. Call sg light in reach. Side rails up X2. water aerobics instructor on. Pulse ox on. NIBP on. Warm blanket given. Head of bed elevated. 12:20 Initial lab(s) drawn, by me, sent to lab. Inserted saline lock: 20 gauge in right jb1 antecubital area, using aseptic technique. Blood collected. 12:20 No provider procedures requiring assistance completed. sg 12:29 CT Head Brain wo Cont In Process Unspecified. EDMS 12:29 CT C Spine In Process Unspecified. EDMS 12:30 CT Thoracic Spine Wo Cont In Process Unspecified. EDMS 12:31 CT Lumbar Spine Wo Con In Process Unspecified. EDMS 12:35 CT completed. Patient tolerated procedure well. Patient moved back from CT. sj 12:53 EKG done, by security installation sales technician. reviewed by Bishnu Christensen MD. at1 12:57 X-ray completed. Portable x-ray completed in exam room. Patient tolerated procedure ml well. 12:59 XRAY Chest (1 view) In Process Unspecified. EDMS 13:35 Catherine Ellsworth MD is Hospitalizing Provider. rn 17:02 Patient admitted, IV remains in place. intact, No redness/swelling at site. sg Administered Medications: 12:15 Drug: NS 0.9% 1000 ml Route: IV; Rate: 1000 ml; Site: right antecubital; sg 13:30 Follow up: Response: No adverse reaction; IV Status: Completed infusion; IV Intake: sg 990ml Intake: 13:30 IV: 990ml; Total: 990ml. sg Outcome: 13:35 Decision to Hospitalize by Provider. rn 17:02 Admitted to Med/surg accompanied by tech, via wheelchair, room 212, with oxygen, with sg chart, Report called to Angela LEE 17:02 Condition: good 17:02 Instructed on the need for admit, safety practices, Demonstrated understanding of instructions, follow-up care. 17:42 Patient left the ED. sg Signatures: Dispatcher [employer] EDMS Sang Hutchinson jb1 Bharath Ansari RN RN sg Jones, Susan sj Williams, Irene, RN RN iw Lopez, Melissa ml Nieto, Roman, MD MD rn Gonzales, Amanda, windows consultant EKG Tat1 Corrections: (The following items were deleted from the chart) 13:01 12:40 NS 0.9% 1000 ml IV at 1000 ml in right antecubital sg sg
--- NOTE | 2017-12-16 13:36 | EDPHYS ---
Physician Documentation [facility] Name: Ginny Raphael Age: 77 yrs Sex: Female : 1940 Arrival Date: 12/16/2017 Time: 12:01 Bed 2 Private MD: ED Physician Bishnu Christensen HPI: 12/16 12:15 This 77 yrs old Female presents to ER via Unassigned with complaints of rn numbness of legs, neck pain, weakness, forgetful. 12:15 Reports has been feeling generalized weakness, forgets what she is doing, went to rn bathroom today and couldn't get up, felt numbness of legs that has now resolved, able to walk, no bowel/bladder issues. Just seen by oncology yesterday, last chemo a few weeks ago. NO trauma. . Onset: The symptoms/episode began/occurred at an unknown time. Severity of symptoms: At their worst the symptoms were moderate in the emergency department the symptoms have improved. The patient has experienced similar episodes in the past. The patient has been recently seen by a physician:. Historical: - Allergies: 12:17 No Known Allergies; sg - Home Meds: 12:17 aspirin 81 mg Oral chew 1 tab once daily [Active]; Lipitor 20 mg Oral tab 1 tab once sg daily [Active]; lisinopril 20 mg Oral tab 1 tab once daily [Active]; morphine 30 mg Oral CM24 1 cap once daily [Active]; Compton 5-325 mg Oral tab 1 tab every 4 hours [Active]; omeprazole 20 mg Oral cpDR 1 cap once daily [Active]; - PMHx: 12:12 breast cancer; Hyperlipidemia; Hypertension; iw - Immunization history:: Adult Immunizations up to date. - Social history:: Smoking status: Patient/guardian denies using tobacco. - Ebola Screening: : Patient negative for fever greater than or equal to 101.5 degrees Fahrenheit, and additional compatible Ebola Virus Disease symptoms Patient denies exposure to infectious person Patient denies travel to an Ebola-affected area in the 21 days before illness onset No symptoms or risks identified at this time. - Family history:: not pertinent. - Hospitalizations: : No recent hospitalization is reported. ROS: 12:15 Constitutional: Negative for fever, chills, and weight loss, Eyes: Negative for injury, rn pain, redness, and discharge, Neck: Negative for injury, pain, and swelling, Cardiovascular: Negative for chest pain, palpitations, and edema, Respiratory: Negative for wheezing, and pleuritic chest pain, Abdomen/GI: Negative for abdominal pain, nausea, vomiting, diarrhea, and constipation, MS/Extremity: Negative for injury and deformity, Skin: Negative for injury, rash, and discoloration, Neuro: Negative for seizure Exam: 12:15 Constitutional: This is a well developed, well nourished patient who is awake, alert, rn and in no acute distress. Head/Face: Normocephalic, atraumatic. Eyes: Pupils equal round and reactive to light, extra-ocular motions intact. Lids and lashes normal. Conjunctiva and sclera are non-icteric and not injected. Cornea within normal limits. Periorbital areas with no swelling, redness, or edema. Neck: mild painful cervical neck pain with movement, no bony tenderness Cardiovascular: Tachycardic, regular, no murmur Respiratory: diminished breath sounds bilaterally, no wheezing, mild tachypnea Abdomen/GI: soft, non-tender Skin: Warm, dry with normal turgor. Normal color with no rashes, no lesions, and no evidence of cellulitis. MS/ Extremity: Pulses equal, no cyanosis. Neurovascular intact. Full, normal range of motion. 1+ pitting edema bilateral lower ext Neuro: Awake and alert, GCS 15, oriented to person, place, time, and situation. Cranial nerves II-XII grossly intact. Motor strength 4/5 in all extremities. Sensory grossly intact. Vital Signs: 12:01 BP 134 / 60; Pulse 103; Resp 18 S; Temp 97.4; Pulse Ox 88% on R/A; iw 12:10 Pulse Ox 100% on 2 lpm NC; sg 14:34 BP 132 / 60; Pulse 89; Resp 13; Pulse Ox 100% on 2 lpm NC; sg 16:59 BP 112 / 50; Pulse 88; Resp 14; Temp 97.4; Pulse Ox 98% on R/A; sg MDM: 12:02 Patient medically screened. rn 13:32 Differential Diagnosis electrolyte disorder, spinal mets, radiculopathy, dehydration, brazer controlled atmospheric furnace renal failure.. Data reviewed: vital signs, nurses notes, lab test result(s), EKG, radiologic studies, CT scan, and as a result, I will admit patient. Counseling: I had a detailed discussion with the patient and/or guardian regarding: the historical points, exam findings, and any diagnostic results supporting the discharge/admit diagnosis, lab results, radiology results, the need for further work-up and treatment in the hospital. Response to treatment: the patient's symptoms have mildly improved after treatment, and as a result, I will admit patient. Admission orders: after a detailed discussion of the patient's condition and case, the admit orders are written by me. ED course: Pt with acute renal failure, will admit to Dr. Ellsworth. . 12/16 12:08 Order name: CBC with Diff; Complete Time: 13:18 rn 12/16 12:08 Order name: Basic Metabolic Panel; Complete Time: : rn 12/16 12:08 Order name: Urine Culture rn 12/16 12:08 Order name: Urine Microscopic Only rn 12/16 12:09 Order name: Blood Culture Adult (2) rn 12/16 12:09 Order name: Procalcitonin; Complete Time: 13:18 rn 12/16 12:13 Order name: Lactate; Complete Time: 13:18 rn 12/16 12:31 Order name: CBC Smear Scan; Complete Time: 13:18 EDMS 12/16 14:22 Order name: CBC with Automated Diff EDMS 12/16 14:22 Order name: CBC with Automated Diff EDMS 12/16 14:22 Order name: CBC with Automated Diff EDMS 12/16 14:22 Order name: CBC with Automated Diff EDMS 12/16 14:22 Order name: Comprehensive Metabolic Panel EDMS 12/16 14:22 Order name: Comprehensive Metabolic Panel EDMS 12/16 12:08 Order name: IV Start; Complete Time: 12:11 rn 12/16 12:08 Order name: CT Head Brain wo Cont; Complete Time: 13:18 rn 12/16 12:08 Order name: XRAY Chest (1 view); Complete Time: 13:18 rn 12/16 12:09 Order name: CT C Spine; Complete Time: 13:18 rn 12/16 12:09 Order name: CT Thoracic Spine Wo Cont; Complete Time: 13:18 rn 12/16 12:09 Order name: CT Lumbar Spine Wo Con; Complete Time: 13:18 rn 12/16 12:42 Order name: EKG - Nurse/Tech; Complete Time: 12:42 ss 12/16 14:22 Order name: Physical Therapy Consult [facility] 12/16 14:22 Order name: Heart Healthy [facility] 12/16 14:22 Order name: Comprehensive Metabolic Panel [facility] 12/16 14:22 Order name: Comprehensive Metabolic Panel [facility] Administered Medications: 12:15 Drug: NS 0.9% 1000 ml Route: IV; Rate: 1000 ml; Site: right antecubital; sg 13:30 Follow up: Response: No adverse reaction; IV Status: Completed infusion; IV Intake: sg 990ml Disposition: 12/16/17 13:35 Hospitalization ordered by Catherine Ellsworth for Inpatient Admission. Preliminary diagnosis are Weakness, Acute kidney failure. - Bed requested for Telemetry/MedSurg (Inpatient). - Status is Inpatient Admission. sg - Condition is Stable. - Problem is new. - Symptoms have improved. UTI on Admission? No Signatures: Dis[facility] Dotty Vallejo RN RN dw Gay, Steven, RN RN Jaqui Grullon RN RN Bishnu Christensen MD MD rn Smirch, Shelby, RN RN Corrections: (The following items were deleted from the chart) 15:38 13:35 Hospitalization Ordered by Catherine Ellsworth MD for Inpatient Admission. Preliminary diagnosis is Weakness; Acute kidney failure. Bed requested for Telemetry/MedSurg (Inpatient). Status is Inpatient Admission. Condition is Stable. Problem is new. Symptoms have improved. UTI on Admission? No. rn 16:33 15:38 12/16/2017 13:35 Hospitalization Ordered by Catherine Ellsworth MD for Inpatient dw Admission. Preliminary diagnosis is Weakness; Acute kidney failure. Bed requested for Telemetry/MedSurg (Inpatient). Status is Inpatient Admission. Condition is Stable. Problem is new. Symptoms have improved. UTI on Admission? No. dw 17:42 16:33 12/16/2017 13:35 Hospitalization Ordered by Catherine Ellsworth MD for Inpatient sg Admission. Preliminary diagnosis is Weakness; Acute kidney failure. Bed requested for Telemetry/MedSurg (Inpatient). Status is Inpatient Admission. Condition is Stable. Problem is new. Symptoms have improved. UTI on Admission? No. dw
[2017-12-16] MEDS ORDERED: ONDANSETRON 4 MG/2 ML VIAL IV PRN (14:18)
[2017-12-16] MEDS ORDERED: ACETAMINOPHEN 500 MG TAB PO PRN (14:18)
[2017-12-16] MEDS ORDERED: MORPHINE 4 MG/ML SYR IV PRN (18:07)
[2017-12-16] MEDS: NA CHLORIDE 0.9% 1,000 ML IV SCH (18:30)
[2017-12-16] MEDS: ENOXAPARIN 30 MG/0.3 ML SQ SCH (18:31)
--- NOTE | 2017-12-16 19:56 | RAD REPORT ---
EXAM DESCRIPTION: US - Renal Ultrasound-Complete - 12/16/2017 7:31 pm CLINICAL HISTORY: . Acute renal failure COMPARISON: None. FINDINGS: The right kidney measures 11 cm with a normal echotexture. The left kidney measures 11 cm with a normal echotexture. Hydronephrosis is not seen. Bladder appears grossly normal IMPRESSION: Unremarkable renal ultrasound.
[2017-12-16 20:26] VITALS: BMI 33.2
--- NOTE | 2017-12-16 20:44 | RAD REPORT ---
EXAM DESCRIPTION: MRI - Brain Wo Cont - 12/16/2017 8:26 pm CLINICAL HISTORY: Bilateral leg numbness/breast cancer COMPARISON: October 2017 TECHNIQUE: Axial, sagittal, and coronal magnetic images of the brain were obtained. Contrast was not requested FINDINGS: No significant abnormal signal is present within the brain. Diffusion-weighted/ADC mapping does not reveal evidence of acute infarction. The ventricles are normal caliber. An extra-axial fluid collection is not present Mild opacification of the ethmoid sinus is present. Mastoids are clear. A couple of small lesions are visualized within the skull. IMPRESSION: Couple of small lesions within the skull consistent with metastatic disease.
--- NOTE | 2017-12-16 23:40 | P.CNS ---
Date of Consult: 12/16/17 Reason for Consult: ARLETTE Chief Complaint: weakness History of Present Illness: A 77 Y/O woman with PMHx of HTN on lisiniopril, HTN and metastatic breast CA, had 1 session of chemo on March Pt presented with wekaness of few days duration pt was wasnt fully oriented, Hx obtained from daughter pt have poor oral intake for the last 7days, noticed LE swelling, went to ER yesterday LE doppler -ve for DVT pt had poor oral intake for the last 7-10 days, no diarrhea, had BM recently, no vomiting, dysuria, urgency or frequency denied NSAID or IV contrast exposure Allergies No Known Allergies Allergy (Verified 04/21/17 09:01) Home Medications: Atorvastatin Calcium [Lipitor*] 20 mg PO BEDTIME 10/03/15 Lisinopril [Prinivil*] 20 mg PO [id number] 10/03/15 Omeprazole 1 tab PO DAILY 02/16/17 Aspirin [Aspirin EC 81 MG] 81 mg PO DAILY 04/21/17 Cholecalciferol (Vitamin D3) [Vitamin D3] 1 cap PO DAILY 12/16/17 Codeine/APAP [Tylenol W/Codeine #3 tab] 1 tab PO Q6HR 12/16/17 Hydrocodone 5/APAP 325 [[place] 5/325*] 1 tab PO Q6HR 12/16/17 Morphine Sulfate [Morphine Sulfate ER] 30 mg PO BID 12/16/17 - Past Medical/Surgical History Diabetic: No -: Hypertension -: hyperlipidemia -: Breast Ca - Social History Alcohol use: No CD- Drugs: No Caffeine use: No Place of Residence: Home Physical Examination Temp Pulse Resp BP Pulse Ox 97.6 F 86 18 103/52 L 94 12/16/17 20:00 12/16/17 20:00 12/16/17 20:00 12/16/17 20:00 12/16/17 20:00 General: Alert HEENT: Atraumatic Neck: JVD not distended Cardiovascular: Other (LE swelling ) Laboratory Data (last 24 hrs) 12/16/17 12:15: Sodium 136, Potassium 4.5, BUN 65 H D, Creatinine 2.70 H D, Glucose 139 H 12/16/17 12:15: WBC 10.4 D, Hgb 10.5 L, Hct 33.3 L, Plt Count 323 - Problems (1) ARLETTE (acute kidney injury) Current Visit: Yes Status: Acute (2) Breast CA Onset Date: 02/17/17 Current Visit: No Status: Chronic Qualifiers: Breast location: unspecified site of breast Estrogen receptor status: unspecified Patient sex: female Laterality: unspecified laterality Qualified Code(s): C50.919 - Malignant neoplasm of unspecified site of unspecified female breast (3) HTN (hypertension) Onset Date: 02/17/17 Current Visit: No Status: Chronic Qualifiers: Hypertension type: essential hypertension Qualified Code(s): I10 - Essential (primary) hypertension (4) Hyperlipemia Onset Date: 02/17/17 Current Visit: No Status: Chronic Qualifiers: Hyperlipidemia type: mixed hyperlipidemia Qualified Code(s): E78.2 - Mixed hyperlipidemia Conclusions/Impression: ARLETTE Cr at baseline WNL although pt had LE swelling, pt she had poor oral iontake renal US gentle IVF NS @50ml/hr for total of 500ml quigley I/O renal US reduce morphine dose Metastatic breast CA HTN hold lisinopril amlodipine 5mg po daily
[2017-12-17] MEDS: NA CHLORIDE 0.9% 1,000 ML IV SCH ×3 (00:54→11:00)
--- NOTE | 2017-12-17 02:34 | HP ---
Date of Admission: 12/16/2017 Chief Complaint: Near syncopal episode, numbness, tingling. Code Status: Full . Primary Care Physician: Unknown. Oncologist: Renetta Portillo MD History Of Present Illness: The patient is a 77-year-old female with past medical history of hyperte nsion, hyperlipidemia, and lung cancer with diffuse metastatic disease including the spine, sacrum, a nd skull, who was in her usual state of health until day of admission when the patient had onset of n ear syncopal episode. The patient states that she was in the bathroom using the toilet, had bear lara n and did not remember what happened next, and then woke up still on the toilet. She did not fall. She had her walker next to her. She then crawled over to the phone and put the cord in order to call 911 as her cellphone without battery. The patient's symptoms are constant, moderate, progressively worsening. She also reported some numbness and tingling in her lower extremities. The patient other gomez denies any fevers, chills, nausea, or vomiting. The patient is not on active chemotherapy or ra diation therapy. Does follow with Dr. Portillo for her lung cancer. The patient does report some pain in her back related to her metastatic disease. The patient's workup revealed creatinine of 2.7, which was normal at baseline. Imaging studies were done, which showed diffuse metastatic disease, h owever, no acute fractures or acute intracranial bleed. The patient was referred for admission. She was given 1 L normal saline. When seen in the ER, the patient was awake, alert, oriented x3, in sanaz e mild distress, ill-appearing. Past Medical History: Hypertension, hyperlipidemia, lung cancer, with diffuse metastatic disease to the lumbar and thoracic spine as well as the sacrum and skull. Past Surgical History: The patient has had a PleurX catheter placed on the right previously and has had bronchoscopy done by Pulmonology. Allergies: NO KNOWN DRUG ALLERGIES. Medications: List reviewed. Family History: The patient denies any significant family history. Social History: The patient denies any tobacco use, alcohol use, or illicit drug use. The patient l britta at home by herself. Does have a daughter. Has good social support. Review of Systems: An 11-point system reviewed, negative except as per HPI. Physical Examination: Vital Signs: Blood pressure 134/60, pulse 103, respirations 18, O2 88% on room air, temperature 97.4 . General: Awake, alert, oriented x3, ill-appearing female, in some moderate distress due to pain. [place] female. HEENT: Normocephalic, atraumatic. PERRLA. EOMI. Dry mucous membranes. Oropharynx is clear. Poor dentition. Conjunctivae anicteric. Neck: Supple. No JVD. Trachea midline. CV: S1, S2. Regular rate and rhythm. Peripheral pulses present. No murmurs. Respiratory: Moving air well bilaterally. No wheezing or stridor. No use of accessory muscles. So me decreased breath sounds on the right. Gastrointestinal: Abdomen is soft, nontender, nondistended. Positive bowel sounds. No guarding or rigidity. Extremities: The patient does have some 2+ lower extremity edema bilaterally. Neuro: Cranial nerves 2 through 12 intact grossly. No focal neurological deficit. Speech is normal . Strength is 5/5 bilateral upper and lower extremities. Sensation intact to light touch. Skin: No rashes, normal skin turgor. Psych: Mood is depressed. Affect is full. Insight and judgment are good. Laboratory Data: Sodium 136, potassium 4.5, chloride 100, CO2 27, BUN 55, creatinine 2.7, glucose 13 9, lactate 1.6, calcium 9.4, procalcitonin 0.15. WBC 10.4, H and H 10.5/33.3, platelets 323, neutrop hils 85%. UA is pending. Imaging Studies: CT brain without contrast shows no hemorrhage, mass, or acute brain parenchymal abn ormality. Lucent areas in the right side of the skull suspicious for metastatic disease. These matc h a bone scan study from October. Chest x-ray shows small to moderate right pleural effusion. Rig ht lung opacities may represent atelectasis or mass. No obvious change since the previous exam in . Left lung appears clear of infiltrate. Heart is normal size. Cervical spine CT shows no erum raffy fracture or acute vertebral body finding. No pending pathological fracture. Several areas of d iminished attenuation within the vertebral bodies, likely metastatic. No gross abnormality of the ce ntral canal. Lumbar spine CT shows metastatic disease in the L1 body with slight progression in wedg ing and a slight progression of the posterior wall buckling. No significant central canal narrowing. Metastatic disease in the L5 body. Metastatic lesion in the pathologic fracture, right sacral ala, not different from December 07. Thoracic spine CT shows metastatic disease, involves the T6 and T9 bodies. Pending compression fracture, possible metastatic disease in the superior endplates of T10 a nd T11. No significant encouragement to the central canal for metastatic disease. Degenerative disk of the T9-T10 does not cause fraying into the central canal. Rib lesions present. Evidence for rig ht hemithorax pleural and lung parenchymal primary or metastatic disease not fully imaged on CT thora cic spine. Assessment And Plan: A 77-year-old female with: 1.Acute kidney injury. We will start on IV fluids. The patient has been bolused. We will monitor creatinine to avoid NSAIDs and nephrotoxins. 2.Acute dehydration. 3.Near syncopal episode, may be likely due to vasovagal episode. Head CT is negative for any intrac ranial mass or bleed. 4.Breast cancer with diffuse metastatic disease to the spine and sacrum as well as the right-sided s kull. The patient follows with Oncology in outpatient, currently not on any chemotherapy or radiatio n therapy. 5.Essential hypertension. 6.Mixed hyperlipidemia. 7.Obesity. 8.Gastrointestinal and deep venous thrombosis prophylaxis. Plan: Admit the patient to Med-Surg, place as inpatient. Continue with IV fluids. Monitor creatini ne level. Overall, poor prognosis. Code status is full. No medical power of chief dietitian or living emily JERNIGAN Voice ID: [id number]
[2017-12-17 06:08] LABS: Absolute Lymphocytes (CBC) 1.1 K/uL (0.7-4.9); Absolute Neutrophil 7.1 K/uL (1.8-8.0); Basophils % 0.3 % (0-1.3); Eosinophils % 0.1 % (0-4.4); Hematocrit 29.6 % (36.0-45.0); Lymphocytes % 11.8 % (15.3-44.8); MCH 25.4 pg (27.0-35.0); MCV 80.9 fL (80-100); MPV 8.4 fL (7.6-11.3); Monocytes % 10.5 % (3.3-12.3); RBC Red Blood Cell Count 3.65 M/uL (3.86-4.86)
[2017-12-17 06:21] LABS: Albumin 2.6 g/dL (3.4-5.0); Bilirubin Total 0.4 mg/dL (0.2-1.0); Potassium 5.2 mmol/L (3.5-5.1); Protein, Total 5.4 g/dL (6.4-8.2)
[2017-12-17 06:24] LABS: Urine Protein/Creatinine Ratio 0.24 ratio (<0.15)
[2017-12-17 06:37] LABS: Thyroid Stimulating Hormone 0.26 uIU/mL (0.360-3.740); Uric Acid 10.2 mg/dL (2.6-6.0)
[2017-12-17 06:39] LABS: CKMB Creatine Kinase MB 35.1 ng/mL (0.3-3.6)
--- NOTE | 2017-12-17 06:52 | EKG ---
Test Date: 2017-12-16 Test Time: 12:41:50 Rib Puller: SANKET MEASUREMENT RESULTS: Intervals: Rate: 98 OK: 178 QRSD: 80 QT: 410 QTc: 523 Bard: P: 31 OK: 178 QRS: -3 T: 49 INTERPRETIVE STATEMENTS: Normal sinus rhythm Possible Left atrial enlargement Cannot rule out Anterior infarct, age undetermined Prolonged QT Abnormal ECG Compared to ECG 02/16/2017 08:19:37 Myocardial infarct finding now present Prolonged QT interval now present Electronically Signed On 12-17-17 06:49:20 CDT by Neil Moreau
[2017-12-17] MEDS: ASPIRIN EC 81 MG TAB PO SCH (09:18)
[2017-12-17] MEDS: MORPHINE *EXTENDED RELEASE* 15 MG TAB PO SCH ×2 (09:18→20:57)
[2017-12-17] MEDS ORDERED: HYDROCODONE/APAP 5/325 MG TAB PO PRN (12:00)
--- NOTE | 2017-12-17 14:12 | P.PN ---
Subjective Date of Service: 12/17/17 Chief Complaint: weakness Subjective: No new changes feels better Cr down to 1.1 Will hold lisiniopril fley Dc , voiding spontaneously Palliative discussion Physical Examination - Vital Signs Temperature: 97.8 F Blood Pressure: 126/66 Pulse: 91 Respirations: 18 Pulse Ox (%): 96 - Physical Exam General: Oriented x3 HEENT: Atraumatic Neck: Supple Respiratory: Normal air movement (increase echophony to Rt lower side ), Diminished Cardiovascular: Regular rate/rhythm, Normal S1 S2, Edema Assessment And Plan - Current Problems (Diagnosis) (1) ARLETTE (acute kidney injury) Current Visit: Yes Status: Acute (2) Breast CA Onset Date: 02/17/17 Current Visit: No Status: Chronic Qualifiers: Breast location: unspecified site of breast Estrogen receptor status: unspecified Patient sex: female Laterality: unspecified laterality Qualified Code(s): C50.919 - Malignant neoplasm of unspecified site of unspecified female breast (3) HTN (hypertension) Onset Date: 02/17/17 Current Visit: No Status: Chronic Qualifiers: Hypertension type: essential hypertension Qualified Code(s): I10 - Essential (primary) hypertension (4) Hyperlipemia Onset Date: 02/17/17 Current Visit: No Status: Chronic Qualifiers: Hyperlipidemia type: mixed hyperlipidemia Qualified Code(s): E78.2 - Mixed hyperlipidemia - Plan ARLETTE improved on NS will hold NS now as pt have pleural effusio and LE edema US; no hydro UPC 0.2 will hold lisiniopril metastatic breast CA Supportive care pain control laxatives HTN BP ok now will hold lisinopril
[2017-12-17] MEDS: ENOXAPARIN 30 MG/0.3 ML SQ SCH (16:26)
[2017-12-17] MEDS ORDERED: SOD POLYSTYREN SUL 15 GM/60 ML UCUP PO ONE (17:00)
--- NOTE | 2017-12-17 19:13 | PN ---
Date of Progress Note: 12/17/2017 Subjective: The patient seen and examined. Chart reviewed and case discussed with RN and Dr. Bhavesh martinez. The patient's daughter at the bedside, who was explained, all questions answered. The patient feels better, though has a low appetite. The pain is very quite moderate, however, somewhat control led with medications. Review of Systems: Negative except as above. Medications: List reviewed. Physical Examination: Vital Signs: Temperature 97.8, heart rate 91, blood pressure 126/66, respirations 18, O2 96% on 1 L via nasal cannula. General: Awake, alert, oriented x3. Some mild distress. Ill-appearing, elderly female, obese. CV: S1, S2. No murmurs. Peripheral pulses present bilaterally. Respiratory: Diminished breath sounds at the right base, otherwise moving air well. No wheezing or stridor. Gastrointestinal: Abdomen is soft, nontender, nondistended. Positive bowel sounds. No guarding or rigidity. Extremities: No clubbing, cyanosis, or edema. No calf tenderness. Neuro: No focal. Laboratory Data: Sodium 141, potassium 5.2, chloride 106, CO2 29, BUN 54, creatinine 1.1, glucose 90 , uric acid is 10.2, calcium 8.6, albumin 2.6, TSH 0.260. WBC 9.1, H and H 9.3 and 29.6, platelets 2 74, neutrophils 77%. Blood cultures, no growth to date. Assessment And Plan: A 77-year-old female with: 1.Acute kidney injury, improved. Creatinine is normalized. We will DC IV fluids. The patient does have chronic right pleural effusion. Continue to avoid NSAIDs and nephrotoxins. Appreciate Nephrol ogy input. 2.Acute dehydration, improving. 3.Severe protein-calorie malnutrition. Albumin is 2.6. The patient has no appetite. Has had some weight loss recently. We will add Megace likely due to her malignancy. 4.Near syncopal episode, likely vasovagal. Imaging studies did not show any acute intracranial blee d. Does have metastatic lesions to the skull. 5.Breast cancer with diffuse metastatic disease to the spine, sacrum and skull. Follows with Dr. Dr cortez as an outpatient. Apparently, contrary to what the patient said yesterday. The patient has had recent chemotherapy 2 weeks ago. However, has very poor prognosis. She is supposed to have rad iation therapy today for palliative radiation on her sacrum. 6.Essential hypertension, stable on medications. 7.Hyperlipidemia, statin. 8.Obesity, BMI 33.3. 9.Gastrointestinal and deep venous thrombosis prophylaxis, addressed. Plan: After long discussion with the family and patient, they wish to proceed with hospice care. We will inform the patient's oncologist. We will proceed with same at hospice. The patient's Macrobid will be delivered tomorrow. Overall, poor prognosis. /ALEJA Voice ID: [id number] Report ID: [id number]
[2017-12-17] MEDS: MEGESTROL 400 MG/10 ML UCUP PO SCH (20:54)
[2017-12-17] MEDS ORDERED: ATORVASTATIN 20 MG TAB PO SCH (21:00)
[2017-12-18] MEDS ORDERED: LISINOPRIL 20 MG TAB PO SCH (06:00)
[2017-12-18 06:26] LABS: Absolute Lymphocytes (CBC) 1.3 K/uL (0.7-4.9); Absolute Monocytes 0.8 K/uL (0.1-1.3); Absolute Neutrophil 5.8 K/uL (1.8-8.0); Basophils % 0.5 % (0-1.3); Eosinophils % 0.4 % (0-4.4); Hematocrit 26.4 % (36.0-45.0); Lymphocytes % 16.5 % (15.3-44.8); MCH 25.6 pg (27.0-35.0); MCV 79.8 fL (80-100); Monocytes % 10.3 % (3.3-12.3); RBC Red Blood Cell Count 3.32 M/uL (3.86-4.86)
[2017-12-18] MEDS ORDERED: PANTOPRAZOLE 40MG TABLET PO SCH (06:30)
[2017-12-18 06:44] LABS: ALT/SGPT 37 U/L (12-78); AST/SGOT 71 U/L (15-37); Albumin 2.3 g/dL (3.4-5.0); Alkaline Phosphatase 129 U/L (45-117); BUN Blood Urea Nitrogen 31 mg/dL (7-18); Bicarbonate 29 mmol/L (21-32); Bilirubin Total 0.5 mg/dL (0.2-1.0); Glucose Level 92 mg/dL (74-106); Potassium 3.9 mmol/L (3.5-5.1); Protein, Total 5.2 g/dL (6.4-8.2); Sodium Level 140 mmol/L (136-145)
[2017-12-18] MEDS: MEGESTROL 400 MG/10 ML UCUP PO SCH (10:01)
[2017-12-18] MEDS: MORPHINE *EXTENDED RELEASE* 15 MG TAB PO SCH (10:01)
[2017-12-18] MEDS: ASPIRIN EC 81 MG TAB PO SCH (10:02)
[2017-12-18 13:06] VITALS: BP 157/78; TEMP 97
[2017-12-18 14:16] VITALS: O2SAT 97
--- NOTE | 2017-12-18 17:35 | PN ---
Date of Progress Note: 12/18/2017 History: The patient was admitted with acute kidney injury secondary to prerenal, recovered. After hydration, kidney function has been improved. Physical Examination: Vital Signs: When I saw the patient, blood pressure 157/78, pulse of 87, afebrile. Chest: Clear to auscultation. Heart: S1, S2. Regular. Abdomen: Soft, nontender. Extremities: No edema. Laboratory Data: H and H 8.5/26.4. Sodium 141, potassium 5.2, bicarb 29, BUN 54, that was yesterday . Today, lab, sodium 140, potassium 3.9, bicarb 29, BUN 31, creatinine 0.5, calcium 8.6. Medications: Current medications the patient on its include: 1.Tylenol. 2.Aspirin. 3.Hydrocodone. 4.Atorvastatin. 5.Megestrol. 6.Pantoprazole. Assessment And Plan: 1.Acute kidney injury, normal-sized kidney, secondary to prerenal recover, resolve. 2.Hypertension, control not optimal. The patient is going to be hospice. No need for further treat ment. 3.Hyperkalemia, resolved. 4.Breast cancer with metastasis. The patient is going to be on hospice. We going to sign off, but please follow up as needed. DRISS Voice ID: [id number] Report ID: [id number]
--- NOTE | 2017-12-19 03:24 | DS ---
Date of Discharge: 12/18/2017 Consultants: Nephrology. Admitting Diagnoses: 1. Acute kidney injury. 2. Acute dehydration. 3. Near-syncopal episode, likely vasovagal. 4. Breast cancer with diffuse metastatic disease. 5. Essential hypertension. 6. Mixed hyperlipidemia. 7. Obesity. Discharge Diagnoses: 1. Acute kidney injury, resolved, creatinine normalized. 2. Acute dehydration, improved. 3. Moderate protein-calorie malnutrition. Albumin 2.4 to 2.6. 4. Near-syncopal episode, likely vasovagal. 5. Breast cancer with diffuse metastatic disease to the spine, sacrum, and skull. The patient is opting for hospice. 6. Essential hypertension, stable. 7. Hyperlipidemia, on statin. 8. Obesity, BMI 33. Hospital Course: The patient is a 77-year-old female with past medical history of hypertension, hyperlipidemia, and diffuse breast cancer with metastatic disease to the spine, sacrum, and skull, who came in with near-syncopal episode , numbness, tingling. She was thought to have a vasovagal episode causing the near-syncopal episode. The patient also was found to have elevated creatinine level of 2.7, which was acute compared to her baseline. She was not septic. CT scan was done showing no acute intracranial abnormalities. However, she was found to have right-sided skull suspicious for metastatic disease, which was present on bone scan from October. Chest x-ray did show the chronic moderate right pleural effusion. Otherwise, lungs were clear. CT cervical spine did not show any compression fractures. She did have diffuse metastatic disease in the spine and the skull. The patient has significant amount of pain, which was controlled with medications. The patient's oncologist, Dr. Portillo was consulted as well. She confirmed that the patient has overall poor prognosis with diffuse metastatic advanced stage disease. Daughter also present at the bedside. After long discussion, family did opt to choose hospice care as the patient goals were care and comfort and being out of pain rather than going through more chemotherapy and radiation therapy. The patient was then set up with pain at hospice. Her creatinine had normalized. She was seen by durable medical equipment technician as well. Her dehydration resolved after IV fluid hydration. Overall, hemoglobin remained stable. There is some mild drop, likely secondary to dilution. The patient was then cleared for discharge, sent home with hospice in a fair condition. Activity: Fall precautions. Diet: Heart healthy. Followup: Follow up with oncologist, Dr. Portillo in 1-2 weeks. Follow up with PCP in 2 weeks. Return to ER for worsening condition and comfort measures. Medications: As per medication reconciliation list. Total time spent discharging the patient was 37 minutes. Physical Examination: General: Awake, alert, oriented, no acute distress. CV: S1, S2. No murmurs. Respiratory: Moving air well on the left side. Diminished breath sounds in the right. Gastrointestinal: Abdomen is soft, nontender, nondistended. Positive bowel sounds. Extremities: No clubbing, cyanosis. Trace pedal edema. Neurologic: Nonfocal. SA/MODL Voice ID: [id number] Report ID: [id number]
== END 2017-12-18 16:45 | disposition hospice, home (50) | DRG 683 ==
LOC: ER 11:54 → ERHOLD 13:36 → 2ND 17:10
PROVIDERS: ADMIT Family Medicine; ATTEND Family Medicine
DX: N17.9 Acute kidney failure, unspecified (principal); E44.0 Moderate protein-calorie malnutrition; C79.51 Secondary malignant neoplasm of bone; J91.8 Pleural effusion in other conditions classified elsewhere; E86.0 Dehydration; Z68.33 Body mass index [BMI] 33.0-33.9, adult; C50.919 Malignant neoplasm of unspecified site of unspecified female breast; I10 Essential (primary) hypertension; R55 Syncope and collapse; E78.2 Mixed hyperlipidemia
CPT/HCPCS: 36415; 70450; 70551; 71045; 72125; 72128; 72131; 76770; 80048; 80053; 82553; 82570; 83605; 84145; 84156; 84443; 84550; 85025; 86335; 87040; 87086; 87088; 93005; 93970; 94760; 96360; 97163; 99285; J1650; J7030